=== PATIENT | male | born 1935 | race African-American/Black ===

== ENCOUNTER 2019-03-20 12:50 | Inpatient (IN) | payer MEDICAID ==
[2019-03-20] VITALS (23 sets, daily range): BP systolic 101–184; BP diastolic 59–131
[~2019-03-20] VITALS: Ht 175.3 cm; Wt 55.8 kg
[2019-03-20 13:54] LABS: CHLORIDE 104 mEq/L (98-107)
[2019-03-20 13:55] LABS: HEMATOCRIT. 24.3 % (42.0-52.0); HEMOGLOBIN. 7.6 g/dL (14.0-18.0); MEAN CORPUSCULAR HEMOGLOBIN 20.1 pg (28.0-32.0); MEAN CORPUSCULAR VOLUME 64.6 fL (80.0-94.0); MEAN PLATELET VOLUME 7.9 fl (7.4-10.4); PLATELET 329 x1000/uL (130-400); RED BLOOD CELL COUNT 3.77 mill/uL (4.7-6.1); RED CELL DISTRIBUTION WIDTH 19.7 % (11.6-14.6)
[2019-03-20 14:32] LABS: PLATELET ESTIMATE NORMAL
[2019-03-20] MEDS ORDERED: IPRATROPIUM/ALBUTEROL 0.5-3(2.5)MG/3ML NEB NEB PRN (18:30)
[2019-03-20] MEDS ORDERED: KETOROLAC 15MG/ML VIAL IV PRN (18:30)
[2019-03-20] MEDS ORDERED: CLONIDINE 0.1MG TABLET PO PRN (18:30)
[2019-03-20] MEDS ORDERED: LORAZEPAM 0.5MG TABLET PO PRN (18:30)
[2019-03-20] MEDS ORDERED: DOCUSATE SODIUM 100MG CAPSULE PO PRN (18:30)
[2019-03-20] MEDS ORDERED: GUAIFENESIN 200MG/10ML SUGAR FREE UDC PO PRN (18:30)
[2019-03-20] MEDS ORDERED: NITROGLYCERIN 0.4MG TABLET SL SL PRN (18:30)
[2019-03-20] MEDS ORDERED: ONDANSETRON HCL 4MG/2ML INJ IV PRN (18:30)
[2019-03-20] MEDS ORDERED: ZOLPIDEM TARTRATE 5MG TABLET PO PRN (18:30)
[2019-03-20 18:48] LABS: CLARITY URINE CLEAR (CLEAR); COLOR URINE YELLOW (YELLOW); KETONES URINE NEGATIVE (NEGATIVE); LEUKOCYTE ESTERASE URINE NEGATIVE (NEGATIVE); NITRITE URINE NEGATIVE (NEGATIVE); OCCULT BLOOD URINE NEGATIVE (NEGATIVE); PROTEIN URINE NEGATIVE (NEGATIVE); SPECIFIC GRAVITY URINE 1.002 (1.005-1.030); UROBILINOGEN URINE 0.2 E.U./dL (0.2-1.0)
[2019-03-20 19:27] LABS: ETHANOL BLOOD < 10 mg/dL
[2019-03-20 19:29] LABS: LDL CHOLESTEROL 60 mg/dL (5-100)
[2019-03-20 19:31] LABS: HDL CHOLESTEROL 114 mg/dL (40-59); TOTAL IRON BINDING CAPACITY 444 ug/dL (250-450)
[2019-03-20 19:32] LABS: T4 FREE 0.89 ng/dL (0.76-1.46)
[2019-03-20 19:44] LABS: FOLIC ACID (FOLATE) SERUM >20 ng/mL ng/mL (>5.38)
[2019-03-20 19:55] LABS: VITAMIN B12 SERUM 789 pg/mL (211-911)
[2019-03-20] MEDS ORDERED: LORAZEPAM 2MG/ML CPJ IV NR (20:45)
[2019-03-20] MEDS ORDERED: PROPOFOL 10MG/ML 100ML 100 ML IV SCH (20:45)
[2019-03-20 20:50] LABS: PROTHROMBIN TIME 10.4 sec (9.6-11.0)
[2019-03-20 20:57] LABS: CREATINE KINASE 395 IU/L (39-308)
[2019-03-20 20:58] LABS: CREATINE KINASE MB FRACTION 3.3 ng/mL (0.5-3.6)
[2019-03-20] MEDS: METOPROLOL TARTRATE 25MG TABLET PO SCH (21:00)
[2019-03-20 21:52] LABS: BG CARBOXYHEMOGLOBIN 0.3 % (0.5-1.5); BG DEOXYHEMOGLOBIN 0.2 % (0.0-5.0); BG FRACTION INSPIRED OXYGEN 100; BG METHEMOGLOBIN 0.3 % (0.0-1.5); BG OXYGEN SATURATION 99.8 % (92.0-98.5); BG OXYHEMOGLOBIN 99.2 % (94.0-97.0); BG PCO2 31.9 mmHg (35.0-45.0); BG PH 7.416 (7.350-7.450); BG PO2 429.3 mmHg (75.0-100.0); BG SAMPLE SITE RIGHT RADIAL; BG TIDAL VOLUME(mL) 500 mL; BG TOTAL HEMOGLOBIN 7.8 g/dL (12.0-18.0); BG VENT MODE VENT - A/C; BG VENT RATE 16 set
[2019-03-20] MEDS ORDERED: SUCCINYLCHOLINE CHLORIDE 200MG/10ML IV ONE (22:30)
[2019-03-20] MEDS ORDERED: ETOMIDATE 2MG/ML 10ML VIAL IV ONE (22:30)
[2019-03-20] MEDS: LABETALOL 5MG/ML SYR 20 MG/4 ML SYRINGE IV NR ×2 (22:40→23:00)
[2019-03-20 22:49] LABS: HEMATOCRIT 25.3 % (42.0-52.0); MEAN CORPUSCULAR HEMOGLOBIN 20.1 pg (28.0-32.0); MEAN CORPUSCULAR VOLUME 63.2 fL (80.0-94.0); PLATELET 314 x1000/uL (130-400); RED BLOOD CELL COUNT 4.01 mill/uL (4.7-6.1); RED CELL DISTRIBUTION WIDTH 20.1 % (11.6-14.6)
[2019-03-20] MEDS ORDERED: ALTEPLASE 100MG/VIAL IV ONE (22:50)
[2019-03-20] MEDS ORDERED: *NO ASPIRIN X 24 HOURS XX SCH (22:50)
[2019-03-20] MEDS ORDERED: CONTAINER EMPTY IV ONE (23:00)
[2019-03-20] MEDS ORDERED: LABETALOL 5MG/ML SYR 20 MG/4 ML SYRINGE IV NR (23:00)
[2019-03-20] MEDS ORDERED: ALTEPLASE IV ONE (23:00)
[2019-03-20] MEDS ORDERED: IOHEXOL-350 100 ML BOTTLE ONE (23:19)
[2019-03-21] VITALS (115 sets, daily range): BP systolic 133–194; BP diastolic 71–125
[2019-03-21] MEDS ORDERED: CLONIDINE 0.1MG TABLET PO PRN (02:45)
[2019-03-21] MEDS: DEXT 5%/0.9% NACL KCL 20MEQ/L 1,000 ML IV SCH ×2 (03:54→15:10)
[2019-03-21] MEDS: BLOOD SUGAR DIAGNOSTIC STRIP TEST SCH ×4 (05:53→21:13)
[2019-03-21] MEDS: PANTOPRAZOLE SODIUM 40 MG/VIAL IV SCH ×2 (05:55→17:37)
[2019-03-21 06:27] LABS: CREATINE KINASE MB FRACTION 8.9 ng/mL (0.5-3.6)
[2019-03-21] MEDS: FERROUS SULFATE 300MG/5ML UDC PO SCH ×3 (06:33→17:00)
[2019-03-21 08:00] LABS: BG BASE EXCESS 1.7 mmol/L (-2.0-2.0); BG CARBOXYHEMOGLOBIN 0.2 % (0.5-1.5); BG FRACTION INSPIRED OXYGEN 50; BG METHEMOGLOBIN 0.6 % (0.0-1.5); BG OXYHEMOGLOBIN 98.2 % (94.0-97.0); BG PCO2 39.6 mmHg (35.0-45.0); BG PH 7.435 (7.350-7.450); BG PO2 219.9 mmHg (75.0-100.0); BG SAMPLE SITE RIGHT BRACHIAL; BG TIDAL VOLUME(mL) 500 mL; BG TOTAL HEMOGLOBIN 8.4 g/dL (12.0-18.0); BG VENT MODE VENT - A/C; BG VENT RATE 14 set
[2019-03-21 08:18] LABS: HEMATOCRIT. 26.5 % (42.0-52.0); HEMOGLOBIN. 8.2 g/dL (14.0-18.0); MEAN CORPUSCULAR HEMOGLOBIN 19.9 pg (28.0-32.0); MEAN CORPUSCULAR VOLUME 64.2 fL (80.0-94.0); MEAN PLATELET VOLUME 8.6 fl (7.4-10.4); PLATELET 321 x1000/uL (130-400); RED BLOOD CELL COUNT 4.13 mill/uL (4.7-6.1); RED CELL DISTRIBUTION WIDTH 20.2 % (11.6-14.6)
[2019-03-21 08:21] LABS: CHLORIDE 106 mEq/L (98-107)
[2019-03-21] MEDS: METOPROLOL TARTRATE 25MG TABLET PO SCH ×2 (09:00→21:00)
[2019-03-21 09:58] LABS: *AMPHETAMINES SCREEN URINE NEGATIVE (NEGATIVE); *BARBITURATES SCREEN URINE NEGATIVE (NEGATIVE); *BENZODIAZEPINES SCREEN URINE NEGATIVE (NEGATIVE); *COCAINE SCREEN URINE NEGATIVE (NEGATIVE); CANNABINOID URINE SCREEN NEGATIVE (NEGATIVE); METHADONE URINE SCREEN NEGATIVE (NEGATIVE); OPIATES URINE SCREEN NEGATIVE (NEGATIVE); PHENCYCLIDINE URINE SCREEN NEGATIVE (NEGATIVE)
[2019-03-21] MEDS ORDERED: DEXTROSE 50% WATER 50ML SYRINGE IV ONE (11:09)
[2019-03-21] MEDS ORDERED: IOHEXOL-300 100 ML BOTTLE ONE (12:08)
[2019-03-21 13:12] LABS: PLATELET ESTIMATE NORMAL
[2019-03-21] MEDS: IPRATROPIUM/ALBUTEROL 0.5-3(2.5)MG/3ML NEB HHN SCH ×2 (15:41→20:08)
[2019-03-21] MEDS: BUDESONIDE 0.5MG/2ML NEB HHN SCH ×2 (15:41→20:08)
[2019-03-22] VITALS (96 sets, daily range): BP systolic 99–164; BP diastolic 50–88
[2019-03-22] MEDS: DEXT 5%/0.9% NACL KCL 20MEQ/L 1,000 ML IV SCH ×3 (01:18→21:48)
[2019-03-22] MEDS: IPRATROPIUM/ALBUTEROL 0.5-3(2.5)MG/3ML NEB HHN SCH ×4 (02:06→20:25)
[2019-03-22] MEDS ORDERED: DEXAMETHASONE 10 MG/ML VIAL IV SCH (05:00)
[2019-03-22] MEDS: NICARDIPINE 100 MG in SODIUM CHLORIDE 0.9% 60 ML IV PRN ×2 (05:05→11:56)
[2019-03-22] MEDS: PANTOPRAZOLE SODIUM 40 MG/VIAL IV SCH ×2 (05:17→17:25)
[2019-03-22 05:20] LABS: HEMATOCRIT. 26.8 % (42.0-52.0); HEMOGLOBIN. 8.3 g/dL (14.0-18.0); MEAN CORPUSCULAR HEMOGLOBIN 19.9 pg (28.0-32.0); MEAN PLATELET VOLUME 8.5 fl (7.4-10.4); PLATELET 273 x1000/uL (130-400); RED BLOOD CELL COUNT 4.19 mill/uL (4.7-6.1); RED CELL DISTRIBUTION WIDTH 20.2 % (11.6-14.6)
[2019-03-22 05:26] LABS: CHLORIDE 108 mEq/L (98-107)
[2019-03-22] MEDS ORDERED: FUROSEMIDE 20MG/2ML VIAL IVP SCH (05:30)
[2019-03-22 05:34] LABS: HDL CHOLESTEROL 95 mg/dL (40-59)
[2019-03-22 05:35] LABS: LDL CHOLESTEROL 53 mg/dL (5-100)
[2019-03-22] MEDS: BLOOD SUGAR DIAGNOSTIC STRIP TEST SCH ×4 (05:45→23:35)
[2019-03-22] MEDS: FERROUS SULFATE 300MG/5ML UDC PO SCH ×3 (06:16→17:00)
[2019-03-22 08:53] LABS: BG BASE EXCESS 1.8 mmol/L (-2.0-2.0); BG CARBOXYHEMOGLOBIN 0.3 % (0.5-1.5); BG DEOXYHEMOGLOBIN 2.6 % (0.0-5.0); BG FRACTION INSPIRED OXYGEN 35; BG HCO3 ACT 25.6 mmol/L (22.0-26.0); BG METHEMOGLOBIN 0.4 % (0.0-1.5); BG OXYGEN SATURATION 97.4 % (92.0-98.5); BG OXYHEMOGLOBIN 96.7 % (94.0-97.0); BG PCO2 36.1 mmHg (35.0-45.0); BG PH 7.468 (7.350-7.450); BG PO2 104.4 mmHg (75.0-100.0); BG SAMPLE SITE RIGHT RADIAL; BG TIDAL VOLUME(mL) 450 mL; BG VENT MODE VENT - A/C; BG VENT RATE 12 set
[2019-03-22] MEDS: LEVETIRACETAM 500 MG in SODIUM CHLORIDE 0.9% 100 ML IV SCH ×2 (08:53→21:48)
[2019-03-22] MEDS: BUDESONIDE 0.5MG/2ML NEB HHN SCH ×2 (08:57→20:25)
[2019-03-22] MEDS: METOPROLOL TARTRATE 25MG TABLET PO SCH ×2 (08:59→21:48)
[2019-03-22 09:20] LABS: NUCLEATED RED BLOOD CELLS 1 /100 WBC; PLATELET ESTIMATE NORMAL
[2019-03-22] MEDS: DEXAMETHASONE 4MG/ML 1ML VIAL IV SCH ×3 (11:48→23:36)
[2019-03-22] MEDS ORDERED: DEXT 5%/LACTATED RINGERS 1,000 ML IV SCH (22:30)
[2019-03-23] VITALS (95 sets, daily range): BP systolic 112–157; BP diastolic 53–92
[2019-03-23] MEDS: IPRATROPIUM/ALBUTEROL 0.5-3(2.5)MG/3ML NEB HHN SCH ×4 (01:43→20:27)
[2019-03-23] MEDS: BLOOD SUGAR DIAGNOSTIC STRIP TEST SCH ×3 (06:29→17:57)
[2019-03-23] MEDS: PANTOPRAZOLE SODIUM 40 MG/VIAL IV SCH ×2 (06:29→17:56)
[2019-03-23] MEDS: FERROUS SULFATE 300MG/5ML UDC PO SCH ×3 (06:30→17:56)
[2019-03-23] MEDS: DEXAMETHASONE 4MG/ML 1ML VIAL IV SCH ×3 (06:30→17:57)
[2019-03-23 07:54] LABS: BG BASE EXCESS -1.5 mmol/L (-2.0-2.0); BG CARBOXYHEMOGLOBIN 0.4 % (0.5-1.5); BG DEOXYHEMOGLOBIN 1.2 % (0.0-5.0); BG FRACTION INSPIRED OXYGEN 35; BG HCO3 ACT 21.8 mmol/L (22.0-26.0); BG METHEMOGLOBIN 0.1 % (0.0-1.5); BG OXYGEN SATURATION 98.8 % (92.0-98.5); BG OXYHEMOGLOBIN 98.3 % (94.0-97.0); BG PCO2 30.1 mmHg (35.0-45.0); BG PH 7.477 (7.350-7.450); BG PO2 143.6 mmHg (75.0-100.0); BG SAMPLE SITE RIGHT RADIAL; BG TIDAL VOLUME(mL) 500 mL; BG VENT MODE VENT - A/C; BG VENT RATE 12 set
[2019-03-23] MEDS: METOPROLOL TARTRATE 25MG TABLET PO SCH ×2 (08:12→20:57)
[2019-03-23] MEDS: LEVETIRACETAM 500 MG in SODIUM CHLORIDE 0.9% 100 ML IV SCH ×2 (08:12→20:58)
[2019-03-23 08:44] LABS: BG CARBOXYHEMOGLOBIN 0.3 % (0.5-1.5); BG DEOXYHEMOGLOBIN 1.9 % (0.0-5.0); BG FRACTION INSPIRED OXYGEN 35; BG HCO3 ACT 24.5 mmol/L (22.0-26.0); BG METHEMOGLOBIN 0.5 % (0.0-1.5); BG OXYGEN SATURATION 98.1 % (92.0-98.5); BG OXYHEMOGLOBIN 97.3 % (94.0-97.0); BG PCO2 33.6 mmHg (35.0-45.0); BG PO2 132.7 mmHg (75.0-100.0); BG PRESSURE SUPPORT 12; BG SAMPLE SITE RIGHT RADIAL; BG TIDAL VOLUME(mL) 450 mL; BG TOTAL HEMOGLOBIN 7.4 g/dL (12.0-18.0); BG VENT MODE VENT - SIMV; BG VENT RATE 8 set
[2019-03-23] MEDS: MORPHINE SULFATE 2 MG/ML CPJ (NOT FOR IM USE) IV PRN (21:30)
[2019-03-23] MEDS: BUDESONIDE 0.5MG/2ML NEB HHN SCH (23:56)
[2019-03-24] VITALS (92 sets, daily range): BP systolic 117–151; BP diastolic 54–76
[2019-03-24] MEDS: BLOOD SUGAR DIAGNOSTIC STRIP TEST SCH ×4 (00:03→17:18)
[2019-03-24] MEDS: DEXAMETHASONE 4MG/ML 1ML VIAL IV SCH ×4 (00:04→17:18)
[2019-03-24] MEDS: IPRATROPIUM/ALBUTEROL 0.5-3(2.5)MG/3ML NEB HHN SCH ×4 (03:42→20:18)
[2019-03-24] MEDS: FERROUS SULFATE 300MG/5ML UDC PO SCH ×3 (06:17→17:18)
[2019-03-24] MEDS: PANTOPRAZOLE SODIUM 40 MG/VIAL IV SCH ×2 (06:18→17:18)
[2019-03-24] MEDS: BUDESONIDE 0.5MG/2ML NEB HHN SCH ×2 (07:56→20:18)
[2019-03-24] MEDS: METOPROLOL TARTRATE 25MG TABLET PO SCH ×2 (08:20→21:33)
[2019-03-24] MEDS: LEVETIRACETAM 500 MG in SODIUM CHLORIDE 0.9% 100 ML IV SCH ×2 (08:20→21:32)
[2019-03-25] VITALS (70 sets, daily range): BP systolic 117–167; BP diastolic 49–119
[2019-03-25] MEDS: BLOOD SUGAR DIAGNOSTIC STRIP TEST SCH ×5 (00:19→23:41)
[2019-03-25] MEDS: DEXAMETHASONE 4MG/ML 1ML VIAL IV SCH ×5 (00:25→23:36)
[2019-03-25] MEDS: IPRATROPIUM/ALBUTEROL 0.5-3(2.5)MG/3ML NEB HHN SCH ×4 (02:20→20:13)
[2019-03-25] MEDS: NICARDIPINE 100 MG in SODIUM CHLORIDE 0.9% 60 ML IV PRN (02:58)
[2019-03-25] MEDS: MORPHINE SULFATE 2 MG/ML CPJ (NOT FOR IM USE) IV PRN (05:22)
[2019-03-25] MEDS: PANTOPRAZOLE SODIUM 40 MG/VIAL IV SCH ×2 (06:08→17:16)
[2019-03-25] MEDS: FERROUS SULFATE 300MG/5ML UDC PO SCH ×3 (07:01→17:15)
[2019-03-25 07:31] LABS: BG BASE EXCESS 3.1 mmol/L (-2.0-2.0); BG CARBOXYHEMOGLOBIN 0.3 % (0.5-1.5); BG DEOXYHEMOGLOBIN 2.5 % (0.0-5.0); BG HCO3 ACT 26.9 mmol/L (22.0-26.0); BG METHEMOGLOBIN 0.5 % (0.0-1.5); BG OXYGEN SATURATION 97.5 % (92.0-98.5); BG OXYHEMOGLOBIN 96.7 % (94.0-97.0); BG PCO2 37.7 mmHg (35.0-45.0); BG PH 7.472 (7.350-7.450); BG PO2 111.2 mmHg (75.0-100.0); BG SAMPLE SITE RIGHT RADIAL; BG TIDAL VOLUME(mL) 450 mL; BG TOTAL HEMOGLOBIN 7.5 g/dL (12.0-18.0); BG VENT MODE VENT - SIMV; BG VENT RATE 8 set
[2019-03-25] MEDS: METOPROLOL TARTRATE 25MG TABLET PO SCH ×2 (08:28→20:27)
[2019-03-25] MEDS: LEVETIRACETAM 500 MG in SODIUM CHLORIDE 0.9% 100 ML IV SCH ×2 (08:28→20:26)
[2019-03-25] MEDS: AMLODIPINE 10MG TABLET PO SCH (10:10)
[2019-03-25] MEDS: LISINOPRIL 20MG TABLET PO SCH ×2 (10:10→20:26)
[2019-03-26] VITALS (57 sets, daily range): BP systolic 99–157; BP diastolic 55–91
[2019-03-26] MEDS: IPRATROPIUM/ALBUTEROL 0.5-3(2.5)MG/3ML NEB HHN SCH ×4 (02:00→20:26)
[2019-03-26] MEDS: BLOOD SUGAR DIAGNOSTIC STRIP TEST SCH ×4 (06:10→23:09)
[2019-03-26] MEDS: DEXAMETHASONE 4MG/ML 1ML VIAL IV SCH ×4 (06:11→23:16)
[2019-03-26] MEDS: PANTOPRAZOLE SODIUM 40 MG/VIAL IV SCH ×2 (06:11→18:01)
[2019-03-26] MEDS: FERROUS SULFATE 300MG/5ML UDC PO SCH ×3 (08:13→18:01)
[2019-03-26] MEDS: LEVETIRACETAM 500 MG in SODIUM CHLORIDE 0.9% 100 ML IV SCH ×2 (09:03→20:49)
[2019-03-26] MEDS: AMLODIPINE 10MG TABLET PO SCH (09:04)
[2019-03-26] MEDS: LISINOPRIL 20MG TABLET PO SCH ×2 (09:04→20:50)
[2019-03-26] MEDS: METOPROLOL TARTRATE 25MG TABLET PO SCH ×2 (09:06→20:50)
[2019-03-26] MEDS ORDERED: DEXTROSE 50% WATER 50ML SYRINGE IV PRN (12:30)
[2019-03-26] MEDS: INSULIN LISPRO 100 UNITS/ML SUBCUT SCH ×3 (12:34→23:20)
[2019-03-27] VITALS (31 sets, daily range): BP systolic 103–154; BP diastolic 58–82
[2019-03-27] MEDS: IPRATROPIUM/ALBUTEROL 0.5-3(2.5)MG/3ML NEB HHN SCH ×4 (02:13→20:25)
[2019-03-27] MEDS: BLOOD SUGAR DIAGNOSTIC STRIP TEST SCH ×4 (05:25→23:53)
[2019-03-27] MEDS: DEXAMETHASONE 4MG/ML 1ML VIAL IV SCH ×4 (05:33→23:59)
[2019-03-27] MEDS: PANTOPRAZOLE SODIUM 40 MG/VIAL IV SCH ×2 (05:33→18:23)
[2019-03-27] MEDS: INSULIN LISPRO 100 UNITS/ML SUBCUT SCH ×4 (05:38→23:59)
[2019-03-27 05:39] LABS: HEMATOCRIT. 27.2 % (42.0-52.0); HEMOGLOBIN. 8.1 g/dL (14.0-18.0); MEAN CORPUSCULAR HEMOGLOBIN 19.1 pg (28.0-32.0); MEAN CORPUSCULAR VOLUME 64.1 fL (80.0-94.0); MEAN PLATELET VOLUME 8.8 fl (7.4-10.4); PLATELET 231 x1000/uL (130-400); RED BLOOD CELL COUNT 4.25 mill/uL (4.7-6.1); RED CELL DISTRIBUTION WIDTH 20.9 % (11.6-14.6)
[2019-03-27 05:47] LABS: CHLORIDE 112 mEq/L (98-107)
[2019-03-27 07:09] LABS: PLATELET ESTIMATE NORMAL
[2019-03-27 08:37] LABS: BG BASE EXCESS 5.7 mmol/L (-2.0-2.0); BG CARBOXYHEMOGLOBIN 0.3 % (0.5-1.5); BG DEOXYHEMOGLOBIN 2.4 % (0.0-5.0); BG FRACTION INSPIRED OXYGEN 35; BG HCO3 ACT 29.6 mmol/L (22.0-26.0); BG METHEMOGLOBIN 1.4 % (0.0-1.5); BG OXYGEN SATURATION 97.6 % (92.0-98.5); BG OXYHEMOGLOBIN 95.9 % (94.0-97.0); BG PCO2 40.1 mmHg (35.0-45.0); BG PH 7.486 (7.350-7.450); BG PRESSURE SUPPORT 12; BG SAMPLE SITE RIGHT BRACHIAL; BG TIDAL VOLUME(mL) 450 mL; BG TOTAL HEMOGLOBIN 8.7 g/dL (12.0-18.0); BG VENT MODE VENT - SIMV; BG VENT RATE 8 set
[2019-03-27] MEDS: LISINOPRIL 20MG TABLET PO SCH ×2 (09:39→21:27)
[2019-03-27] MEDS: METOPROLOL TARTRATE 25MG TABLET PO SCH ×2 (09:39→21:28)
[2019-03-27] MEDS: AMLODIPINE 10MG TABLET PO SCH (09:40)
[2019-03-27] MEDS: LEVETIRACETAM 500 MG in SODIUM CHLORIDE 0.9% 100 ML IV SCH ×2 (09:40→21:27)
[2019-03-27] MEDS ORDERED: MEROPENEM 500 MG in SODIUM CHLORIDE 0.9% 50 ML IV SCH (09:45)
[2019-03-27 10:59] LABS: BG BASE EXCESS 4.7 mmol/L (-2.0-2.0); BG CARBOXYHEMOGLOBIN 0.3 % (0.5-1.5); BG DEOXYHEMOGLOBIN 2.2 % (0.0-5.0); BG FRACTION INSPIRED OXYGEN 35; BG HCO3 ACT 28.8 mmol/L (22.0-26.0); BG METHEMOGLOBIN 0.2 % (0.0-1.5); BG OXYGEN SATURATION 97.8 % (92.0-98.5); BG OXYHEMOGLOBIN 97.3 % (94.0-97.0); BG PCO2 40.9 mmHg (35.0-45.0); BG PH 7.466 (7.350-7.450); BG PO2 113.9 mmHg (75.0-100.0); BG PRESSURE SUPPORT 8; BG SAMPLE SITE RIGHT BRACHIAL; BG TOTAL HEMOGLOBIN 8.6 g/dL (12.0-18.0); BG VENT MODE VENT - CPAP
[2019-03-27] MEDS ORDERED: VANCOMYCIN 1 G PREMIX 200 ML IV NR (12:00)
[2019-03-27] MEDS: FERROUS SULFATE 300MG/5ML UDC PO SCH ×3 (12:00→17:00)
[2019-03-27] MEDS: MEROPENEM 1000MG in NORMAL SALINE 100ML IV SCH ×2 (12:17→22:27)
[2019-03-27] MEDS: NYSTATIN 100,000 UNITS/ML 5ML UDC SSP SCH ×3 (12:17→23:59)
[2019-03-27] MEDS: VANCOMYCIN 750 MG PREMIX 150 ML IV SCH (23:52)
[2019-03-28] VITALS (50 sets, daily range): BP systolic 87–169; BP diastolic 27–88
[2019-03-28] MEDS: IPRATROPIUM/ALBUTEROL 0.5-3(2.5)MG/3ML NEB HHN SCH ×4 (00:35→20:16)
[2019-03-28] MEDS: BLOOD SUGAR DIAGNOSTIC STRIP TEST SCH ×3 (06:01→17:32)
[2019-03-28] MEDS: DEXAMETHASONE 4MG/ML 1ML VIAL IV SCH ×4 (06:05→23:58)
[2019-03-28] MEDS: PANTOPRAZOLE SODIUM 40 MG/VIAL IV SCH ×2 (06:05→17:43)
[2019-03-28] MEDS: FERROUS SULFATE 300MG/5ML UDC PO SCH ×3 (06:05→17:00)
[2019-03-28] MEDS: NYSTATIN 100,000 UNITS/ML 5ML UDC SSP SCH ×4 (06:05→23:58)
[2019-03-28] MEDS: INSULIN LISPRO 100 UNITS/ML SUBCUT SCH ×3 (06:15→17:45)
[2019-03-28] MEDS: METOPROLOL TARTRATE 25MG TABLET PO SCH ×2 (08:31→20:32)
[2019-03-28] MEDS: LEVETIRACETAM 500 MG in SODIUM CHLORIDE 0.9% 100 ML IV SCH ×2 (08:31→21:28)
[2019-03-28] MEDS: LISINOPRIL 20MG TABLET PO SCH ×2 (08:32→20:32)
[2019-03-28] MEDS: AMLODIPINE 10MG TABLET PO SCH (08:32)
[2019-03-28] MEDS ORDERED: ETOMIDATE 2MG/ML 10ML VIAL IV ONE (10:00)
[2019-03-28] MEDS ORDERED: VECURONIUM BROMIDE 10 MG/VIAL IV ONE (10:00)
[2019-03-28] MEDS: MEROPENEM 1000MG in NORMAL SALINE 100ML IV SCH ×2 (10:45→22:24)
[2019-03-28] MEDS: VANCOMYCIN 750 MG PREMIX 150 ML IV SCH ×2 (11:02→23:10)
[2019-03-28] MEDS ORDERED: SODIUM CHLORIDE 0.9% 500 ML IV NR (11:24)
[2019-03-28 12:04] LABS: BG BASE EXCESS 6.8 mmol/L (-2.0-2.0); BG CARBOXYHEMOGLOBIN 0.1 % (0.5-1.5); BG DEOXYHEMOGLOBIN 0.4 % (0.0-5.0); BG FRACTION INSPIRED OXYGEN 100; BG HCO3 ACT 30.6 mmol/L (22.0-26.0); BG METHEMOGLOBIN 0.4 % (0.0-1.5); BG OXYGEN SATURATION 99.6 % (92.0-98.5); BG OXYHEMOGLOBIN 99.1 % (94.0-97.0); BG PCO2 40.1 mmHg (35.0-45.0); BG PO2 471.8 mmHg (75.0-100.0); BG SAMPLE SITE RIGHT BRACHIAL; BG TIDAL VOLUME(mL) 500 mL; BG TOTAL HEMOGLOBIN 8.5 g/dL (12.0-18.0); BG VENT MODE VENT - A/C; BG VENT RATE 14 set
[2019-03-28 13:35] LABS: HEMATOCRIT. 26.5 % (42.0-52.0); HEMOGLOBIN. 7.9 g/dL (14.0-18.0); MEAN CORPUSCULAR VOLUME 63.4 fL (80.0-94.0); MEAN PLATELET VOLUME 8.8 fl (7.4-10.4); PLATELET 216 x1000/uL (130-400); RED BLOOD CELL COUNT 4.18 mill/uL (4.7-6.1); RED CELL DISTRIBUTION WIDTH 20.8 % (11.6-14.6)
[2019-03-28 13:37] LABS: CHLORIDE 113 mEq/L (98-107)
[2019-03-28 14:38] LABS: NUCLEATED RED BLOOD CELLS 1 /100 WBC; PLATELET ESTIMATE NORMAL
[2019-03-28] MEDS: DOCUSATE SODIUM SUGAR FREE 100MG/10ML UDC NG SCH (20:32)
[2019-03-29] VITALS (48 sets, daily range): BP systolic 105–146; BP diastolic 54–84
[2019-03-29] MEDS: IPRATROPIUM/ALBUTEROL 0.5-3(2.5)MG/3ML NEB HHN SCH ×4 (01:42→20:10)
[2019-03-29] MEDS: DEXAMETHASONE 4MG/ML 1ML VIAL IV SCH ×4 (06:03→23:43)
[2019-03-29] MEDS: FERROUS SULFATE 300MG/5ML UDC PO SCH ×3 (06:03→16:34)
[2019-03-29] MEDS: PANTOPRAZOLE SODIUM 40 MG/VIAL IV SCH ×2 (06:03→17:44)
[2019-03-29] MEDS: BLOOD SUGAR DIAGNOSTIC STRIP TEST SCH ×5 (06:04→23:43)
[2019-03-29] MEDS: NYSTATIN 100,000 UNITS/ML 5ML UDC SSP SCH ×4 (06:05→23:43)
[2019-03-29] MEDS: INSULIN LISPRO 100 UNITS/ML SUBCUT SCH ×5 (06:05→23:44)
[2019-03-29 08:32] LABS: BG BASE EXCESS 0.3 mmol/L (-2.0-2.0); BG CARBOXYHEMOGLOBIN 0.3 % (0.5-1.5); BG DEOXYHEMOGLOBIN 2.4 % (0.0-5.0); BG FRACTION INSPIRED OXYGEN 35; BG HCO3 ACT 23.6 mmol/L (22.0-26.0); BG METHEMOGLOBIN 0.3 % (0.0-1.5); BG OXYGEN SATURATION 97.6 % (92.0-98.5); BG PCO2 33.3 mmHg (35.0-45.0); BG PH 7.469 (7.350-7.450); BG PO2 115.6 mmHg (75.0-100.0); BG PRESSURE SUPPORT 12; BG SAMPLE SITE RIGHT RADIAL; BG TIDAL VOLUME(mL) 450 mL; BG TOTAL HEMOGLOBIN 9.4 g/dL (12.0-18.0); BG VENT MODE VENT - SIMV; BG VENT RATE 8 set
[2019-03-29] MEDS: DOCUSATE SODIUM SUGAR FREE 100MG/10ML UDC NG SCH ×2 (09:19→16:35)
[2019-03-29] MEDS: LEVETIRACETAM 500 MG in SODIUM CHLORIDE 0.9% 100 ML IV SCH ×2 (09:19→21:38)
[2019-03-29] MEDS: LISINOPRIL 20MG TABLET PO SCH ×2 (09:19→20:46)
[2019-03-29] MEDS: AMLODIPINE 10MG TABLET PO SCH (09:19)
[2019-03-29] MEDS: METOPROLOL TARTRATE 25MG TABLET PO SCH ×2 (09:20→20:46)
[2019-03-29] MEDS: MEROPENEM 1000MG in NORMAL SALINE 100ML IV SCH ×2 (10:57→23:43)
[2019-03-29] MEDS: VANCOMYCIN 750 MG PREMIX 150 ML IV SCH ×2 (12:17→19:54)
[2019-03-29] MEDS ORDERED: LACTULOSE 20G/30ML UDC PO NR (14:45)
[2019-03-29] MEDS ORDERED: DOCUSATE SODIUM 100MG CAPSULE NG SCH (17:00)
[2019-03-30] VITALS (49 sets, daily range): BP systolic 79–144; BP diastolic 51–99
[2019-03-30] MEDS: IPRATROPIUM/ALBUTEROL 0.5-3(2.5)MG/3ML NEB HHN SCH ×4 (01:51→20:44)
[2019-03-30] MEDS: VANCOMYCIN 750 MG PREMIX 150 ML IV SCH ×3 (03:17→22:38)
[2019-03-30 05:36] LABS: CHLORIDE 111 mEq/L (98-107); HEMATOCRIT. 33.4 % (42.0-52.0); HEMOGLOBIN. 10.3 g/dL (14.0-18.0); MEAN CORPUSCULAR HEMOGLOBIN 20.4 pg (28.0-32.0); MEAN CORPUSCULAR VOLUME 66.6 fL (80.0-94.0); MEAN PLATELET VOLUME 9.2 fl (7.4-10.4); PLATELET 226 x1000/uL (130-400); RED BLOOD CELL COUNT 5.02 mill/uL (4.7-6.1); RED CELL DISTRIBUTION WIDTH 24.3 % (11.6-14.6)
[2019-03-30] MEDS: DEXAMETHASONE 4MG/ML 1ML VIAL IV SCH ×4 (05:44→23:48)
[2019-03-30] MEDS: PANTOPRAZOLE SODIUM 40 MG/VIAL IV SCH ×2 (05:44→17:38)
[2019-03-30] MEDS: NYSTATIN 100,000 UNITS/ML 5ML UDC SSP SCH ×4 (05:44→23:48)
[2019-03-30] MEDS: INSULIN LISPRO 100 UNITS/ML SUBCUT SCH ×4 (05:44→23:49)
[2019-03-30] MEDS: FERROUS SULFATE 300MG/5ML UDC PO SCH ×3 (06:14→17:38)
[2019-03-30] MEDS: BLOOD SUGAR DIAGNOSTIC STRIP TEST SCH ×4 (06:14→23:48)
[2019-03-30 06:50] LABS: PLATELET ESTIMATE NORMAL
[2019-03-30 08:38] LABS: BG BASE EXCESS 4.9 mmol/L (-2.0-2.0); BG CARBOXYHEMOGLOBIN 0.2 % (0.5-1.5); BG DEOXYHEMOGLOBIN 2.8 % (0.0-5.0); BG FRACTION INSPIRED OXYGEN 35; BG HCO3 ACT 28.8 mmol/L (22.0-26.0); BG METHEMOGLOBIN 0.3 % (0.0-1.5); BG OXYGEN SATURATION 97.2 % (92.0-98.5); BG OXYHEMOGLOBIN 96.7 % (94.0-97.0); BG PCO2 39.9 mmHg (35.0-45.0); BG PH 7.477 (7.350-7.450); BG PO2 109.1 mmHg (75.0-100.0); BG PRESSURE SUPPORT 12; BG SAMPLE SITE RIGHT RADIAL; BG TIDAL VOLUME(mL) 500 mL; BG VENT MODE VENT - SIMV; BG VENT RATE 6 set
[2019-03-30] MEDS: LISINOPRIL 20MG TABLET PO SCH ×2 (09:15→20:40)
[2019-03-30] MEDS: METOPROLOL TARTRATE 25MG TABLET PO SCH ×2 (09:15→20:39)
[2019-03-30] MEDS: AMLODIPINE 10MG TABLET PO SCH (09:16)
[2019-03-30] MEDS: LEVETIRACETAM 500 MG in SODIUM CHLORIDE 0.9% 100 ML IV SCH ×2 (09:16→20:39)
[2019-03-30] MEDS: DOCUSATE SODIUM SUGAR FREE 100MG/10ML UDC NG SCH ×2 (09:16→17:00)
[2019-03-30] MEDS: MEROPENEM 1000MG in NORMAL SALINE 100ML IV SCH ×2 (10:07→23:50)
[2019-03-30 16:29] LABS: INR 0.9; PROTHROMBIN TIME 9.7 sec (9.6-11.0)
[2019-03-31] VITALS (47 sets, daily range): BP systolic 105–149; BP diastolic 62–99
[2019-03-31] MEDS: IPRATROPIUM/ALBUTEROL 0.5-3(2.5)MG/3ML NEB HHN SCH ×4 (01:52→20:44)
[2019-03-31 05:07] LABS: HEMATOCRIT. 31.8 % (42.0-52.0); HEMOGLOBIN. 9.7 g/dL (14.0-18.0); MEAN CORPUSCULAR HEMOGLOBIN 20.5 pg (28.0-32.0); MEAN CORPUSCULAR VOLUME 66.8 fL (80.0-94.0); MEAN PLATELET VOLUME 9.4 fl (7.4-10.4); PLATELET 213 x1000/uL (130-400); RED BLOOD CELL COUNT 4.75 mill/uL (4.7-6.1); RED CELL DISTRIBUTION WIDTH 23.7 % (11.6-14.6)
[2019-03-31 05:09] LABS: CHLORIDE 112 mEq/L (98-107)
[2019-03-31 05:22] LABS: VANCOMYCIN TROUGH 18.2 ug/mL (5.0-10.0)
[2019-03-31] MEDS: DEXAMETHASONE 4MG/ML 1ML VIAL IV SCH ×4 (05:59→23:05)
[2019-03-31] MEDS: VANCOMYCIN 750 MG PREMIX 150 ML IV SCH ×3 (05:59→21:49)
[2019-03-31] MEDS: NYSTATIN 100,000 UNITS/ML 5ML UDC SSP SCH ×4 (05:59→23:05)
[2019-03-31] MEDS: BLOOD SUGAR DIAGNOSTIC STRIP TEST SCH ×4 (05:59→23:19)
[2019-03-31] MEDS: PANTOPRAZOLE SODIUM 40 MG/VIAL IV SCH ×2 (06:00→17:36)
[2019-03-31] MEDS: INSULIN LISPRO 100 UNITS/ML SUBCUT SCH ×5 (06:00→23:23)
[2019-03-31] MEDS: FERROUS SULFATE 300MG/5ML UDC PO SCH ×3 (07:00→17:36)
[2019-03-31] MEDS: LEVETIRACETAM 500 MG in SODIUM CHLORIDE 0.9% 100 ML IV SCH ×2 (08:14→20:44)
[2019-03-31] MEDS: DOCUSATE SODIUM SUGAR FREE 100MG/10ML UDC NG SCH ×2 (08:15→17:36)
[2019-03-31] MEDS: METOPROLOL TARTRATE 25MG TABLET PO SCH ×2 (08:40→20:44)
[2019-03-31] MEDS: AMLODIPINE 10MG TABLET PO SCH (08:40)
[2019-03-31] MEDS: LISINOPRIL 20MG TABLET PO SCH ×2 (08:40→20:45)
[2019-03-31 09:10] LABS: PLATELET ESTIMATE NORMAL
[2019-03-31] MEDS ORDERED: SODIUM CHLORIDE 0.9% 10ML VIAL ONE (11:26)
[2019-03-31] MEDS ORDERED: VECURONIUM BROMIDE 10 MG/VIAL IV ONE (11:26)
[2019-03-31] MEDS: MEROPENEM 1000MG in NORMAL SALINE 100ML IV SCH ×2 (12:50→23:06)
[2019-04-01] VITALS (50 sets, daily range): BP systolic 93–159; BP diastolic 54–92
[2019-04-01] MEDS: IPRATROPIUM/ALBUTEROL 0.5-3(2.5)MG/3ML NEB HHN SCH ×4 (01:47→20:33)
[2019-04-01] MEDS: DEXAMETHASONE 4MG/ML 1ML VIAL IV SCH ×3 (05:47→18:05)
[2019-04-01] MEDS: PANTOPRAZOLE SODIUM 40 MG/VIAL IV SCH ×2 (05:47→18:05)
[2019-04-01] MEDS: NYSTATIN 100,000 UNITS/ML 5ML UDC SSP SCH ×2 (05:48→11:41)
[2019-04-01] MEDS: VANCOMYCIN 750 MG PREMIX 150 ML IV SCH ×3 (05:50→21:16)
[2019-04-01] MEDS: INSULIN LISPRO 100 UNITS/ML SUBCUT SCH ×3 (06:12→18:06)
[2019-04-01] MEDS: BLOOD SUGAR DIAGNOSTIC STRIP TEST SCH ×3 (06:13→18:00)
[2019-04-01] MEDS: FERROUS SULFATE 300MG/5ML UDC PO SCH ×2 (08:38→11:41)
[2019-04-01] MEDS: LEVETIRACETAM 500 MG in SODIUM CHLORIDE 0.9% 100 ML IV SCH ×2 (08:38→21:16)
[2019-04-01] MEDS: AMLODIPINE 10MG TABLET PO SCH (08:39)
[2019-04-01] MEDS: METOPROLOL TARTRATE 25MG TABLET PO SCH ×2 (08:39→21:16)
[2019-04-01] MEDS: DOCUSATE SODIUM SUGAR FREE 100MG/10ML UDC NG SCH ×2 (08:39→18:05)
[2019-04-01] MEDS: LISINOPRIL 20MG TABLET PO SCH ×2 (08:39→21:17)
[2019-04-01] MEDS: MEROPENEM 1000MG in NORMAL SALINE 100ML IV SCH (11:41)
[2019-04-01] MEDS: IRON SUCROSE COMPLEX 100 MG/5 ML ML IV SCH (17:00)
[2019-04-02] VITALS (35 sets, daily range): BP systolic 97–152; BP diastolic 52–95
[2019-04-02] MEDS: BLOOD SUGAR DIAGNOSTIC STRIP TEST SCH ×4 (00:14→17:37)
[2019-04-02] MEDS: INSULIN LISPRO 100 UNITS/ML SUBCUT SCH ×4 (00:20→17:37)
[2019-04-02] MEDS: DEXAMETHASONE 4MG/ML 1ML VIAL IV SCH ×5 (00:20→23:59)
[2019-04-02] MEDS: IPRATROPIUM/ALBUTEROL 0.5-3(2.5)MG/3ML NEB HHN SCH ×4 (02:25→20:12)
[2019-04-02] MEDS: PANTOPRAZOLE SODIUM 40 MG/VIAL IV SCH ×2 (05:38→17:37)
[2019-04-02] MEDS: VANCOMYCIN 750 MG PREMIX 150 ML IV SCH ×3 (05:38→22:25)
[2019-04-02] MEDS: LEVETIRACETAM 500 MG in SODIUM CHLORIDE 0.9% 100 ML IV SCH ×2 (08:15→21:56)
[2019-04-02] MEDS: DOCUSATE SODIUM SUGAR FREE 100MG/10ML UDC NG SCH ×2 (08:15→17:00)
[2019-04-02] MEDS: METOPROLOL TARTRATE 25MG TABLET PO SCH ×2 (08:16→21:56)
[2019-04-02] MEDS: IRON SUCROSE COMPLEX 100 MG/5 ML ML IV SCH (08:16)
[2019-04-02] MEDS: LISINOPRIL 20MG TABLET PO SCH ×2 (08:17→21:57)
[2019-04-02] MEDS: AMLODIPINE 10MG TABLET PO SCH (08:17)
[2019-04-02 08:55] LABS: HEMATOCRIT. 31.3 % (42.0-52.0); HEMOGLOBIN. 9.7 g/dL (14.0-18.0); MEAN CORPUSCULAR HEMOGLOBIN 20.6 pg (28.0-32.0); MEAN CORPUSCULAR VOLUME 66.4 fL (80.0-94.0); RED BLOOD CELL COUNT 4.71 mill/uL (4.7-6.1); RED CELL DISTRIBUTION WIDTH 24.4 % (11.6-14.6)
[2019-04-02 09:00] LABS: PROTHROMBIN TIME 10.2 sec (9.6-11.0)
[2019-04-02 09:07] LABS: CHLORIDE 110 mEq/L (98-107)
[2019-04-02 09:14] LABS: PLATELET ESTIMATE NORMAL
[2019-04-02 09:16] LABS: MEAN PLATELET VOLUME 9.2 fl (7.4-10.4); PLATELET 156 x1000/uL (130-400)
[2019-04-02 09:32] LABS: BG CARBOXYHEMOGLOBIN 0.2 % (0.5-1.5); BG DEOXYHEMOGLOBIN 1.5 % (0.0-5.0); BG FRACTION INSPIRED OXYGEN 35; BG HCO3 ACT 20.7 mmol/L (22.0-26.0); BG METHEMOGLOBIN 0.3 % (0.0-1.5); BG OXYGEN SATURATION 98.5 % (92.0-98.5); BG PCO2 29.3 mmHg (35.0-45.0); BG PH 7.468 (7.350-7.450); BG PO2 149.1 mmHg (75.0-100.0); BG PRESSURE SUPPORT 12; BG SAMPLE SITE RIGHT RADIAL; BG TIDAL VOLUME(mL) 500 mL; BG TOTAL HEMOGLOBIN 11.7 g/dL (12.0-18.0); BG VENT MODE VENT - SIMV; BG VENT RATE 6 set
[2019-04-02] MEDS: MEROPENEM 1000MG in NORMAL SALINE 100ML IV SCH ×4 (12:23→23:46)
[2019-04-02] MEDS ORDERED: FENTANYL CITRATE/PF 50MCG/ML 2ML VIAL ONE (17:51)
[2019-04-02] MEDS ORDERED: MIDAZOLAM HCL 5 MG/5 ML VIAL ONE (17:52)
[2019-04-02] MEDS ORDERED: MIDAZOLAM HCL 5 MG/5 ML VIAL IV ONE (18:16)
[2019-04-03] VITALS (9 sets, daily range): BP systolic 88–106; BP diastolic 52–65
[2019-04-03] MEDS: BLOOD SUGAR DIAGNOSTIC STRIP TEST SCH ×5 (00:02→23:48)
[2019-04-03] MEDS: INSULIN LISPRO 100 UNITS/ML SUBCUT SCH ×5 (00:07→23:54)
[2019-04-03] MEDS: IPRATROPIUM/ALBUTEROL 0.5-3(2.5)MG/3ML NEB HHN SCH ×4 (02:01→20:44)
[2019-04-03] MEDS: DEXAMETHASONE 4MG/ML 1ML VIAL IV SCH ×4 (06:46→23:45)
[2019-04-03] MEDS: PANTOPRAZOLE SODIUM 40 MG/VIAL IV SCH ×2 (06:46→17:29)
[2019-04-03] MEDS: VANCOMYCIN 750 MG PREMIX 150 ML IV SCH ×3 (06:52→22:57)
[2019-04-03] MEDS: METOPROLOL TARTRATE 25MG TABLET PO SCH (08:28)
[2019-04-03] MEDS: LISINOPRIL 20MG TABLET PO SCH ×2 (08:29→21:00)
[2019-04-03] MEDS: AMLODIPINE 10MG TABLET PO SCH (08:29)
[2019-04-03] MEDS: LEVETIRACETAM 500 MG in SODIUM CHLORIDE 0.9% 100 ML IV SCH ×2 (08:35→21:26)
[2019-04-03] MEDS: IRON SUCROSE COMPLEX 100 MG/5 ML ML IV SCH (09:01)
[2019-04-03] MEDS: DOCUSATE SODIUM SUGAR FREE 100MG/10ML UDC NG SCH ×2 (09:01→17:00)
[2019-04-03] MEDS: MEROPENEM 1000MG in NORMAL SALINE 100ML IV SCH ×2 (11:00→23:45)
[2019-04-04] VITALS (12 sets, daily range): BP systolic 97–130; BP diastolic 56–89
[2019-04-04] MEDS: IPRATROPIUM/ALBUTEROL 0.5-3(2.5)MG/3ML NEB HHN SCH ×4 (02:22→20:34)
[2019-04-04] MEDS: DEXAMETHASONE 4MG/ML 1ML VIAL IV SCH ×3 (05:58→18:04)
[2019-04-04] MEDS: PANTOPRAZOLE SODIUM 40 MG/VIAL IV SCH ×2 (05:58→18:04)
[2019-04-04] MEDS: BLOOD SUGAR DIAGNOSTIC STRIP TEST SCH ×3 (05:58→17:46)
[2019-04-04] MEDS: INSULIN LISPRO 100 UNITS/ML SUBCUT SCH ×3 (06:00→18:05)
[2019-04-04] MEDS: AMLODIPINE 10MG TABLET PO SCH (09:00)
[2019-04-04] MEDS: LISINOPRIL 20MG TABLET PO SCH ×2 (09:00→21:27)
[2019-04-04] MEDS: IRON SUCROSE COMPLEX 100 MG/5 ML ML IV SCH (09:35)
[2019-04-04] MEDS: DOCUSATE SODIUM SUGAR FREE 100MG/10ML UDC NG SCH ×2 (09:35→17:00)
[2019-04-04] MEDS: LEVETIRACETAM 500 MG in SODIUM CHLORIDE 0.9% 100 ML IV SCH ×2 (10:10→21:27)
[2019-04-04] MEDS ORDERED: TRAMADOL 50MG TABLET PO PRN (21:51)
[2019-04-05] VITALS (13 sets, daily range): BP systolic 96–125; BP diastolic 61–75
[2019-04-05] MEDS: DEXAMETHASONE 4MG/ML 1ML VIAL IV SCH ×4 (00:25→17:57)
[2019-04-05] MEDS: INSULIN LISPRO 100 UNITS/ML SUBCUT SCH ×4 (00:26→17:44)
[2019-04-05] MEDS: BLOOD SUGAR DIAGNOSTIC STRIP TEST SCH ×5 (00:26→23:42)
[2019-04-05] MEDS: IPRATROPIUM/ALBUTEROL 0.5-3(2.5)MG/3ML NEB HHN SCH ×4 (02:29→20:21)
[2019-04-05] MEDS: PANTOPRAZOLE SODIUM 40 MG/VIAL IV SCH ×2 (05:58→17:43)
[2019-04-05] MEDS: IRON SUCROSE COMPLEX 100 MG/5 ML ML IV SCH (08:28)
[2019-04-05] MEDS: DOCUSATE SODIUM SUGAR FREE 100MG/10ML UDC NG SCH ×2 (08:28→17:43)
[2019-04-05] MEDS: AMLODIPINE 10MG TABLET PO SCH (08:28)
[2019-04-05] MEDS: LISINOPRIL 20MG TABLET PO SCH ×2 (08:28→21:00)
[2019-04-05] MEDS: LEVETIRACETAM 500 MG in SODIUM CHLORIDE 0.9% 100 ML IV SCH ×2 (08:28→22:02)
[2019-04-05 13:42] LABS: TOTAL IRON BINDING CAPACITY 245 ug/dL (250-450)
[2019-04-06] VITALS (12 sets, daily range): BP systolic 90–129; BP diastolic 58–78
[2019-04-06] MEDS: INSULIN LISPRO 100 UNITS/ML SUBCUT SCH ×6 (00:12→23:38)
[2019-04-06] MEDS: IPRATROPIUM/ALBUTEROL 0.5-3(2.5)MG/3ML NEB HHN SCH ×4 (02:19→20:51)
[2019-04-06] MEDS: DEXAMETHASONE 4MG/ML 1ML VIAL IV SCH ×2 (02:27→09:31)
[2019-04-06] MEDS: PANTOPRAZOLE SODIUM 40 MG/VIAL IV SCH ×2 (05:42→17:27)
[2019-04-06] MEDS: BLOOD SUGAR DIAGNOSTIC STRIP TEST SCH ×4 (05:42→23:32)
[2019-04-06 07:38] LABS: HEMATOCRIT. 30.4 % (42.0-52.0); HEMOGLOBIN. 9.3 g/dL (14.0-18.0); MEAN CORPUSCULAR HEMOGLOBIN 20.6 pg (28.0-32.0); MEAN CORPUSCULAR VOLUME 67.1 fL (80.0-94.0); MEAN PLATELET VOLUME 9.1 fl (7.4-10.4); PLATELET 126 x1000/uL (130-400); RED BLOOD CELL COUNT 4.53 mill/uL (4.7-6.1); RED CELL DISTRIBUTION WIDTH 25.3 % (11.6-14.6)
[2019-04-06] MEDS: DOCUSATE SODIUM SUGAR FREE 100MG/10ML UDC NG SCH ×2 (09:30→17:27)
[2019-04-06] MEDS: LEVETIRACETAM 500 MG in SODIUM CHLORIDE 0.9% 100 ML IV SCH ×2 (09:30→20:58)
[2019-04-06] MEDS: AMLODIPINE 10MG TABLET PO SCH (09:30)
[2019-04-06] MEDS: LISINOPRIL 20MG TABLET PO SCH ×2 (09:30→20:58)
[2019-04-06 13:05] LABS: PLATELET ESTIMATE SLIGHTLY DECREASED
[2019-04-06] MEDS ORDERED: DEXAMETHASONE 1MG TABLET PO SCH (21:00)
[2019-04-06] MEDS: DEXAMETHASONE 2MG TABLET PO SCH (23:54)
[2019-04-07] VITALS (12 sets, daily range): BP systolic 99–123; BP diastolic 55–78
[2019-04-07] MEDS: IPRATROPIUM/ALBUTEROL 0.5-3(2.5)MG/3ML NEB HHN SCH ×4 (00:33→20:27)
[2019-04-07] MEDS: PANTOPRAZOLE SODIUM 40 MG/VIAL IV SCH ×2 (05:23→18:34)
[2019-04-07] MEDS: BLOOD SUGAR DIAGNOSTIC STRIP TEST SCH ×4 (05:23→23:30)
[2019-04-07] MEDS: INSULIN LISPRO 100 UNITS/ML SUBCUT SCH ×4 (05:37→23:30)
[2019-04-07] MEDS: LEVETIRACETAM 500 MG in SODIUM CHLORIDE 0.9% 100 ML IV SCH ×2 (09:38→21:12)
[2019-04-07] MEDS: AMLODIPINE 10MG TABLET PO SCH (09:39)
[2019-04-07] MEDS: MAGNESIUM/ALUMINUM HYDROXIDE/SIMETHICONE 30ML UDC PO PRN (09:39)
[2019-04-07] MEDS: LISINOPRIL 20MG TABLET PO SCH ×2 (09:39→21:12)
[2019-04-07] MEDS: DEXAMETHASONE 2MG TABLET PO SCH ×2 (09:39→21:12)
[2019-04-07] MEDS: DOCUSATE SODIUM SUGAR FREE 100MG/10ML UDC NG SCH ×2 (09:39→18:35)
[2019-04-08] VITALS (15 sets, daily range): BP systolic 94–127; BP diastolic 48–76
[2019-04-08] MEDS: IPRATROPIUM/ALBUTEROL 0.5-3(2.5)MG/3ML NEB HHN SCH ×4 (01:46→20:18)
[2019-04-08] MEDS: PANTOPRAZOLE SODIUM 40 MG/VIAL IV SCH ×2 (05:06→18:41)
[2019-04-08] MEDS: BLOOD SUGAR DIAGNOSTIC STRIP TEST SCH ×3 (05:22→18:42)
[2019-04-08] MEDS: INSULIN LISPRO 100 UNITS/ML SUBCUT SCH ×3 (05:26→18:42)
[2019-04-08] MEDS: MAGNESIUM/ALUMINUM HYDROXIDE/SIMETHICONE 30ML UDC PO PRN (09:05)
[2019-04-08] MEDS: LEVETIRACETAM 500 MG in SODIUM CHLORIDE 0.9% 100 ML IV SCH ×2 (09:05→21:22)
[2019-04-08] MEDS: LISINOPRIL 20MG TABLET PO SCH ×2 (09:06→20:27)
[2019-04-08] MEDS: AMLODIPINE 10MG TABLET PO SCH (09:06)
[2019-04-08] MEDS: DEXAMETHASONE 2MG TABLET PO SCH (09:06)
[2019-04-08] MEDS: DOCUSATE SODIUM SUGAR FREE 100MG/10ML UDC NG SCH ×2 (09:06→16:37)
[2019-04-08 17:38] LABS: CHLORIDE 111 mEq/L (98-107)
[2019-04-09] VITALS (12 sets, daily range): BP systolic 104–138; BP diastolic 50–88
[2019-04-09] MEDS: IPRATROPIUM/ALBUTEROL 0.5-3(2.5)MG/3ML NEB HHN SCH ×4 (02:27→20:03)
[2019-04-09] MEDS: BLOOD SUGAR DIAGNOSTIC STRIP TEST SCH ×5 (06:09→23:20)
[2019-04-09] MEDS: PANTOPRAZOLE SODIUM 40 MG/VIAL IV SCH ×2 (06:10→17:40)
[2019-04-09] MEDS: LEVETIRACETAM 500 MG in SODIUM CHLORIDE 0.9% 100 ML IV SCH ×2 (08:50→21:13)
[2019-04-09] MEDS: DOCUSATE SODIUM SUGAR FREE 100MG/10ML UDC NG SCH ×2 (08:50→17:40)
[2019-04-09] MEDS: AMLODIPINE 10MG TABLET PO SCH (08:52)
[2019-04-09] MEDS: LISINOPRIL 20MG TABLET PO SCH ×2 (08:52→21:00)
[2019-04-09] MEDS: ACETAMINOPHEN 325MG TABLET PO PRN (17:40)
[2019-04-09] MEDS: INSULIN LISPRO 100 UNITS/ML SUBCUT SCH (23:24)
[2019-04-10] VITALS (11 sets, daily range): BP systolic 98–149; BP diastolic 36–71
[2019-04-10] MEDS: IPRATROPIUM/ALBUTEROL 0.5-3(2.5)MG/3ML NEB HHN SCH ×4 (02:01→19:59)
[2019-04-10] MEDS: PANTOPRAZOLE SODIUM 40 MG/VIAL IV SCH ×2 (05:08→18:08)
[2019-04-10] MEDS: BLOOD SUGAR DIAGNOSTIC STRIP TEST SCH ×3 (05:08→17:31)
[2019-04-10] MEDS: LISINOPRIL 20MG TABLET PO SCH ×2 (08:09→21:19)
[2019-04-10] MEDS: AMLODIPINE 10MG TABLET PO SCH (08:09)
[2019-04-10] MEDS: DOCUSATE SODIUM SUGAR FREE 100MG/10ML UDC NG SCH ×2 (08:09→17:00)
[2019-04-10] MEDS: LEVETIRACETAM 500 MG in SODIUM CHLORIDE 0.9% 100 ML IV SCH ×2 (08:32→21:51)
[2019-04-10] MEDS: INSULIN LISPRO 100 UNITS/ML SUBCUT SCH ×2 (13:08→18:08)
[2019-04-10] MEDS: ACETAMINOPHEN 325MG TABLET PO PRN (15:30)
[2019-04-11] VITALS (9 sets, daily range): BP systolic 92–123; BP diastolic 59–63
[2019-04-11] MEDS: IPRATROPIUM/ALBUTEROL 0.5-3(2.5)MG/3ML NEB HHN SCH ×4 (02:25→20:28)
[2019-04-11] MEDS: INSULIN LISPRO 100 UNITS/ML SUBCUT SCH ×4 (05:44→18:00)
[2019-04-11] MEDS: BLOOD SUGAR DIAGNOSTIC STRIP TEST SCH ×4 (05:44→17:13)
[2019-04-11] MEDS: PANTOPRAZOLE SODIUM 40 MG/VIAL IV SCH ×2 (05:50→17:13)
[2019-04-11 07:08] LABS: CHLORIDE 116 mEq/L (98-107)
[2019-04-11 07:09] LABS: HEMATOCRIT. 29.5 % (42.0-52.0); HEMOGLOBIN. 9.2 g/dL (14.0-18.0); MEAN CORPUSCULAR HEMOGLOBIN 21.4 pg (28.0-32.0); MEAN CORPUSCULAR VOLUME 68.4 fL (80.0-94.0); RED BLOOD CELL COUNT 4.32 mill/uL (4.7-6.1); RED CELL DISTRIBUTION WIDTH 29.1 % (11.6-14.6)
[2019-04-11 08:30] LABS: PLATELET ESTIMATE DECREASED
[2019-04-11 08:32] LABS: MEAN PLATELET VOLUME 9.6 fl (7.4-10.4); PLATELET 100 x1000/uL (130-400)
[2019-04-11] MEDS: AMLODIPINE 10MG TABLET PO SCH (09:00)
[2019-04-11] MEDS: LISINOPRIL 20MG TABLET PO SCH ×2 (09:00→21:04)
[2019-04-11] MEDS: DOCUSATE SODIUM SUGAR FREE 100MG/10ML UDC NG SCH ×2 (09:42→17:13)
[2019-04-11] MEDS: LEVETIRACETAM 500 MG in SODIUM CHLORIDE 0.9% 100 ML IV SCH ×2 (09:42→21:05)
[2019-04-11] MEDS: ACETAMINOPHEN 325MG TABLET PO PRN (15:44)
[2019-04-12] VITALS (12 sets, daily range): BP systolic 91–142; BP diastolic 48–64
[2019-04-12] MEDS: IPRATROPIUM/ALBUTEROL 0.5-3(2.5)MG/3ML NEB HHN SCH ×4 (01:59→20:06)
[2019-04-12] MEDS: PANTOPRAZOLE SODIUM 40 MG/VIAL IV SCH ×2 (05:56→17:34)
[2019-04-12] MEDS: BLOOD SUGAR DIAGNOSTIC STRIP TEST SCH ×5 (06:00→23:47)
[2019-04-12] MEDS: INSULIN LISPRO 100 UNITS/ML SUBCUT SCH ×5 (06:00→23:55)
[2019-04-12] MEDS: LISINOPRIL 20MG TABLET PO SCH ×2 (09:00→21:00)
[2019-04-12] MEDS: AMLODIPINE 10MG TABLET PO SCH (09:00)
[2019-04-12] MEDS: DOCUSATE SODIUM SUGAR FREE 100MG/10ML UDC NG SCH ×2 (10:55→17:34)
[2019-04-12] MEDS: LEVETIRACETAM 500 MG in SODIUM CHLORIDE 0.9% 100 ML IV SCH ×2 (14:03→22:30)
[2019-04-13] VITALS (11 sets, daily range): BP systolic 95–131; BP diastolic 49–75
[2019-04-13] MEDS: IPRATROPIUM/ALBUTEROL 0.5-3(2.5)MG/3ML NEB HHN SCH ×5 (00:09→20:20)
[2019-04-13] MEDS: BLOOD SUGAR DIAGNOSTIC STRIP TEST SCH ×4 (05:30→23:13)
[2019-04-13] MEDS: INSULIN LISPRO 100 UNITS/ML SUBCUT SCH ×4 (05:31→23:23)
[2019-04-13] MEDS: PANTOPRAZOLE SODIUM 40 MG/VIAL IV SCH ×2 (06:21→17:35)
[2019-04-13 06:51] LABS: HEMATOCRIT 28.7 % (42.0-52.0); HEMOGLOBIN 8.9 g/dL (14.0-18.0); MEAN CORPUSCULAR HEMOGLOBIN 21.3 pg (28.0-32.0); MEAN CORPUSCULAR VOLUME 68.6 fL (80.0-94.0); RED BLOOD CELL COUNT 4.18 mill/uL (4.7-6.1)
[2019-04-13 06:56] LABS: CHLORIDE 117 mEq/L (98-107)
[2019-04-13 07:06] LABS: TOTAL IRON BINDING CAPACITY 147 ug/dL (250-450)
[2019-04-13] MEDS: DOCUSATE SODIUM SUGAR FREE 100MG/10ML UDC NG SCH ×2 (09:00→17:35)
[2019-04-13] MEDS: LEVETIRACETAM 500 MG in SODIUM CHLORIDE 0.9% 100 ML IV SCH ×2 (09:00→21:07)
[2019-04-13] MEDS: AMLODIPINE 10MG TABLET PO SCH (09:00)
[2019-04-13] MEDS: LISINOPRIL 20MG TABLET PO SCH ×2 (09:00→21:29)
[2019-04-13 10:20] LABS: PLATELET 115 x1000/uL (130-400)
[2019-04-13] MEDS: ACETAMINOPHEN 325MG TABLET PO PRN (23:11)
[2019-04-14] VITALS (14 sets, daily range): BP systolic 95–143; BP diastolic 48–77
[2019-04-14] MEDS: IPRATROPIUM/ALBUTEROL 0.5-3(2.5)MG/3ML NEB HHN SCH ×5 (01:51→19:50)
[2019-04-14] MEDS: BLOOD SUGAR DIAGNOSTIC STRIP TEST SCH ×4 (05:38→23:12)
[2019-04-14] MEDS: INSULIN LISPRO 100 UNITS/ML SUBCUT SCH ×3 (05:45→17:49)
[2019-04-14] MEDS: PANTOPRAZOLE SODIUM 40 MG/VIAL IV SCH ×2 (05:45→17:21)
[2019-04-14] MEDS: DOCUSATE SODIUM SUGAR FREE 100MG/10ML UDC NG SCH ×2 (08:55→17:48)
[2019-04-14] MEDS: LEVETIRACETAM 500 MG in SODIUM CHLORIDE 0.9% 100 ML IV SCH ×2 (08:55→23:11)
[2019-04-14] MEDS: MAGNESIUM/ALUMINUM HYDROXIDE/SIMETHICONE 30ML UDC PO PRN (08:55)
[2019-04-14] MEDS: FERROUS SULFATE 300MG/5ML UDC PO SCH ×3 (08:55→17:21)
[2019-04-14] MEDS: LISINOPRIL 20MG TABLET PO SCH ×2 (08:56→21:00)
[2019-04-14] MEDS: AMLODIPINE 10MG TABLET PO SCH (08:58)
[2019-04-14] MEDS: ACETAMINOPHEN 325MG TABLET PO PRN (13:45)
[2019-04-14 16:15] LABS: CHLORIDE 113 mEq/L (98-107)
[2019-04-15] VITALS (12 sets, daily range): BP systolic 97–126; BP diastolic 45–71
[2019-04-15] MEDS: IPRATROPIUM/ALBUTEROL 0.5-3(2.5)MG/3ML NEB HHN SCH ×4 (02:32→20:47)
[2019-04-15] MEDS: BLOOD SUGAR DIAGNOSTIC STRIP TEST SCH ×3 (05:58→18:20)
[2019-04-15] MEDS: INSULIN LISPRO 100 UNITS/ML SUBCUT SCH ×4 (05:59→18:00)
[2019-04-15] MEDS: PANTOPRAZOLE SODIUM 40 MG/VIAL IV SCH ×2 (06:00→18:21)
[2019-04-15 07:22] LABS: HEMATOCRIT. 24.2 % (42.0-52.0); HEMOGLOBIN. 7.7 g/dL (14.0-18.0); MEAN CORPUSCULAR HEMOGLOBIN 21.1 pg (28.0-32.0); MEAN CORPUSCULAR VOLUME 66.5 fL (80.0-94.0); RED BLOOD CELL COUNT 3.64 mill/uL (4.7-6.1); RED CELL DISTRIBUTION WIDTH 31.1 % (11.6-14.6)
[2019-04-15 07:34] LABS: CHLORIDE 111 mEq/L (98-107)
[2019-04-15] MEDS: FERROUS SULFATE 300MG/5ML UDC PO SCH ×3 (08:18→18:21)
[2019-04-15] MEDS: ACETAMINOPHEN 325MG TABLET PO PRN ×2 (08:19→22:37)
[2019-04-15] MEDS: AMLODIPINE 10MG TABLET PO SCH (09:00)
[2019-04-15] MEDS: LISINOPRIL 20MG TABLET PO SCH ×2 (09:00→20:42)
[2019-04-15] MEDS: LEVETIRACETAM 500 MG in SODIUM CHLORIDE 0.9% 100 ML IV SCH ×2 (09:25→20:42)
[2019-04-15] MEDS: DOCUSATE SODIUM SUGAR FREE 100MG/10ML UDC NG SCH ×2 (09:25→17:00)
[2019-04-15 12:32] LABS: NUCLEATED RED BLOOD CELLS 8 /100 WBC
[2019-04-15 12:37] LABS: PLATELET ESTIMATE NORMAL
[2019-04-15 12:38] LABS: PLATELET 150 x1000/uL (130-400)
[2019-04-16] VITALS (13 sets, daily range): BP systolic 94–121; BP diastolic 47–86
[2019-04-16] MEDS: BLOOD SUGAR DIAGNOSTIC STRIP TEST SCH ×4 (05:21→17:21)
[2019-04-16] MEDS: INSULIN LISPRO 100 UNITS/ML SUBCUT SCH ×4 (05:22→17:21)
[2019-04-16] MEDS: PANTOPRAZOLE SODIUM 40 MG/VIAL IV SCH ×2 (05:24→17:28)
[2019-04-16 07:46] LABS: MEAN CORPUSCULAR HEMOGLOBIN 21.2 pg (28.0-32.0); MEAN CORPUSCULAR VOLUME 66.4 fL (80.0-94.0); MEAN PLATELET VOLUME 9.9 fl (7.4-10.4); PLATELET 145 x1000/uL (130-400); RED BLOOD CELL COUNT 3.77 mill/uL (4.7-6.1); RED CELL DISTRIBUTION WIDTH 30.4 % (11.6-14.6)
[2019-04-16] MEDS: FERROUS SULFATE 300MG/5ML UDC PO SCH ×3 (08:11→17:28)
[2019-04-16] MEDS: DOCUSATE SODIUM SUGAR FREE 100MG/10ML UDC NG SCH ×2 (08:11→17:28)
[2019-04-16] MEDS: LEVETIRACETAM 500 MG in SODIUM CHLORIDE 0.9% 100 ML IV SCH ×2 (08:11→21:43)
[2019-04-16] MEDS: ACETAMINOPHEN 325MG TABLET PO PRN (08:11)
[2019-04-16] MEDS: LISINOPRIL 20MG TABLET PO SCH ×3 (08:12→21:00)
[2019-04-16] MEDS: AMLODIPINE 10MG TABLET PO SCH (08:13)
[2019-04-16 08:31] LABS: CHLORIDE 109 mEq/L (98-107)
[2019-04-16 10:49] LABS: PLATELET ESTIMATE NORMAL
[2019-04-16] MEDS: IPRATROPIUM/ALBUTEROL 0.5-3(2.5)MG/3ML NEB HHN SCH (19:50)
[2019-04-17] VITALS (12 sets, daily range): BP systolic 76–128; BP diastolic 47–65
[2019-04-17] MEDS: BLOOD SUGAR DIAGNOSTIC STRIP TEST SCH ×4 (00:27→18:00)
[2019-04-17] MEDS: ACETAMINOPHEN 325MG TABLET PO PRN (00:46)
[2019-04-17] MEDS: IPRATROPIUM/ALBUTEROL 0.5-3(2.5)MG/3ML NEB HHN SCH ×3 (01:56→20:10)
[2019-04-17] MEDS: INSULIN LISPRO 100 UNITS/ML SUBCUT SCH ×4 (06:00→17:45)
[2019-04-17] MEDS: PANTOPRAZOLE SODIUM 40 MG/VIAL IV SCH ×2 (06:28→16:43)
[2019-04-17 07:56] LABS: CHLORIDE 108 mEq/L (98-107)
[2019-04-17 07:59] LABS: HEMATOCRIT. 27.3 % (42.0-52.0); HEMOGLOBIN. 8.6 g/dL (14.0-18.0); MEAN CORPUSCULAR VOLUME 67.2 fL (80.0-94.0); MEAN PLATELET VOLUME 9.4 fl (7.4-10.4); PLATELET 167 x1000/uL (130-400); RED BLOOD CELL COUNT 4.07 mill/uL (4.7-6.1); RED CELL DISTRIBUTION WIDTH 32.1 % (11.6-14.6)
[2019-04-17] MEDS: DOCUSATE SODIUM SUGAR FREE 100MG/10ML UDC NG SCH ×2 (08:53→16:43)
[2019-04-17] MEDS: FERROUS SULFATE 300MG/5ML UDC PO SCH ×3 (08:53→17:32)
[2019-04-17] MEDS: LISINOPRIL 20MG TABLET PO SCH ×2 (08:56→21:00)
[2019-04-17] MEDS: AMLODIPINE 10MG TABLET PO SCH (08:56)
[2019-04-17 09:10] LABS: NUCLEATED RED BLOOD CELLS 14 /100 WBC
[2019-04-17 09:11] LABS: PLATELET ESTIMATE NORMAL
[2019-04-17] MEDS: LEVETIRACETAM 500 MG in SODIUM CHLORIDE 0.9% 100 ML IV SCH ×2 (10:47→23:36)
[2019-04-17] MEDS: CEFEPIME 1,000 MG in DEXTROSE 5% WATER 50 ML IV SCH (13:55)
[2019-04-17] MEDS ORDERED: VANCOMYCIN 1250MG in DEXTROSE 5% WATER 250ML IV NR (14:00)
[2019-04-17] MEDS ORDERED: SODIUM CHLORIDE 0.9% 500 ML IV SCH (19:15)
[2019-04-17] MEDS ORDERED: CEFEPIME HCL 1000MG/VIAL INJ IM SCH (21:00)
[2019-04-17] MEDS ORDERED: VANCOMYCIN 750 MG PREMIX 150 ML IV SCH (22:00)
[2019-04-18] VITALS (29 sets, daily range): BP systolic 81–118; BP diastolic 45–95
[2019-04-18] MEDS: CEFEPIME 1,000 MG in DEXTROSE 5% WATER 50 ML IV SCH ×2 (01:00→12:18)
[2019-04-18] MEDS: VANCOMYCIN 750 MG PREMIX 150 ML IV SCH ×3 (01:08→13:18)
[2019-04-18] MEDS: IPRATROPIUM/ALBUTEROL 0.5-3(2.5)MG/3ML NEB HHN SCH ×2 (03:35→20:13)
[2019-04-18] MEDS: INSULIN LISPRO 100 UNITS/ML SUBCUT SCH ×4 (06:00→17:21)
[2019-04-18] MEDS: PANTOPRAZOLE SODIUM 40 MG/VIAL IV SCH (06:00)
[2019-04-18] MEDS: DOCUSATE SODIUM SUGAR FREE 100MG/10ML UDC NG SCH ×2 (08:19→17:24)
[2019-04-18] MEDS: AMLODIPINE 10MG TABLET PO SCH (08:19)
[2019-04-18] MEDS: FERROUS SULFATE 300MG/5ML UDC PO SCH ×3 (08:19→17:24)
[2019-04-18] MEDS: LISINOPRIL 20MG TABLET PO SCH ×2 (08:19→21:00)
[2019-04-18] MEDS: LEVETIRACETAM 500 MG in SODIUM CHLORIDE 0.9% 100 ML IV SCH ×2 (08:21→21:47)
[2019-04-18 15:11] LABS: CHLORIDE 109 mEq/L (98-107)
[2019-04-18] MEDS ORDERED: SODIUM CHLORIDE 0.9% 500 ML IV NR (16:00)
[2019-04-18 16:44] LABS: MEAN CORPUSCULAR HEMOGLOBIN 21.1 pg (28.0-32.0); MEAN CORPUSCULAR VOLUME 66.8 fL (80.0-94.0); MEAN PLATELET VOLUME 9.1 fl (7.4-10.4); PLATELET 148 x1000/uL (130-400); RED BLOOD CELL COUNT 3.04 mill/uL (4.7-6.1); RED CELL DISTRIBUTION WIDTH 31.6 % (11.6-14.6)
[2019-04-18 16:52] LABS: HEMATOCRIT. 20.3 % (42.0-52.0); HEMOGLOBIN. 6.4 g/dL (14.0-18.0)
[2019-04-18 19:07] LABS: NUCLEATED RED BLOOD CELLS 17 /100 WBC
[2019-04-18 19:08] LABS: PLATELET ESTIMATE NORMAL
[2019-04-19] VITALS (20 sets, daily range): BP systolic 89–118; BP diastolic 53–70
[2019-04-19] MEDS: VANCOMYCIN 750 MG PREMIX 150 ML IV SCH ×4 (02:11→21:22)
[2019-04-19] MEDS: INSULIN LISPRO 100 UNITS/ML SUBCUT SCH ×5 (06:00→23:47)
[2019-04-19] MEDS: CEFEPIME 1,000 MG in DEXTROSE 5% WATER 50 ML IV SCH ×2 (06:14→12:24)
[2019-04-19] MEDS: DOCUSATE SODIUM SUGAR FREE 100MG/10ML UDC NG SCH ×2 (08:14→18:29)
[2019-04-19] MEDS: FERROUS SULFATE 300MG/5ML UDC PO SCH ×3 (08:15→18:29)
[2019-04-19] MEDS: AMLODIPINE 10MG TABLET PO SCH (08:17)
[2019-04-19] MEDS: LISINOPRIL 20MG TABLET PO SCH ×2 (08:17→20:22)
[2019-04-19] MEDS: LEVETIRACETAM 500 MG in SODIUM CHLORIDE 0.9% 100 ML IV SCH (11:04)
[2019-04-19 12:54] LABS: HEMATOCRIT. 29.7 % (42.0-52.0); HEMOGLOBIN. 9.7 g/dL (14.0-18.0); MEAN CORPUSCULAR HEMOGLOBIN 23.5 pg (28.0-32.0); MEAN CORPUSCULAR VOLUME 71.6 fL (80.0-94.0); MEAN PLATELET VOLUME 9.3 fl (7.4-10.4); PLATELET 144 x1000/uL (130-400); RED BLOOD CELL COUNT 4.15 mill/uL (4.7-6.1); RED CELL DISTRIBUTION WIDTH 31.8 % (11.6-14.6)
[2019-04-19 16:40] LABS: NUCLEATED RED BLOOD CELLS 16 /100 WBC; PLATELET ESTIMATE NORMAL
[2019-04-20] VITALS (13 sets, daily range): BP systolic 89–114; BP diastolic 57–68
[2019-04-20] MEDS: CEFEPIME 1,000 MG in DEXTROSE 5% WATER 50 ML IV SCH ×2 (00:04→13:17)
[2019-04-20] MEDS: VANCOMYCIN 750 MG PREMIX 150 ML IV SCH ×3 (05:21→21:16)
[2019-04-20] MEDS: INSULIN LISPRO 100 UNITS/ML SUBCUT SCH ×3 (06:00→17:45)
[2019-04-20] MEDS: AMLODIPINE 10MG TABLET PO SCH (09:00)
[2019-04-20] MEDS: LISINOPRIL 20MG TABLET PO SCH ×2 (09:00→21:00)
[2019-04-20] MEDS: DOCUSATE SODIUM SUGAR FREE 100MG/10ML UDC NG SCH ×2 (09:09→17:41)
[2019-04-20] MEDS: FERROUS SULFATE 300MG/5ML UDC PO SCH ×3 (09:09→17:41)
[2019-04-20 10:54] LABS: HEMATOCRIT. 32.7 % (42.0-52.0); HEMOGLOBIN. 10.8 g/dL (14.0-18.0); MEAN CORPUSCULAR HEMOGLOBIN 23.6 pg (28.0-32.0); MEAN CORPUSCULAR VOLUME 71.6 fL (80.0-94.0); MEAN PLATELET VOLUME 9.1 fl (7.4-10.4); PLATELET 150 x1000/uL (130-400); RED BLOOD CELL COUNT 4.57 mill/uL (4.7-6.1); RED CELL DISTRIBUTION WIDTH 32.4 % (11.6-14.6)
[2019-04-20 10:57] LABS: CHLORIDE 102 mEq/L (98-107)
[2019-04-20 13:11] LABS: NUCLEATED RED BLOOD CELLS 6 /100 WBC
[2019-04-20 13:12] LABS: PLATELET ESTIMATE NORMAL
[2019-04-21] VITALS (14 sets, daily range): BP systolic 100–139; BP diastolic 57–73
[2019-04-21] MEDS: CEFEPIME 1,000 MG in DEXTROSE 5% WATER 50 ML IV SCH ×2 (00:06→12:38)
[2019-04-21] MEDS: VANCOMYCIN 750 MG PREMIX 150 ML IV SCH ×3 (05:34→21:22)
[2019-04-21] MEDS: INSULIN LISPRO 100 UNITS/ML SUBCUT SCH ×4 (05:39→17:05)
[2019-04-21] MEDS: AMLODIPINE 10MG TABLET PO SCH (09:00)
[2019-04-21] MEDS: LISINOPRIL 20MG TABLET PO SCH ×2 (09:00→20:43)
[2019-04-21] MEDS: FERROUS SULFATE 300MG/5ML UDC PO SCH ×3 (09:09→17:06)
[2019-04-21] MEDS: DOCUSATE SODIUM SUGAR FREE 100MG/10ML UDC NG SCH ×2 (09:09→17:06)
[2019-04-22] VITALS (16 sets, daily range): BP systolic 57–128; BP diastolic 38–79
[2019-04-22] MEDS: CEFEPIME 1,000 MG in DEXTROSE 5% WATER 50 ML IV SCH ×2 (00:36→13:02)
[2019-04-22] MEDS: INSULIN LISPRO 100 UNITS/ML SUBCUT SCH ×4 (05:59→17:25)
[2019-04-22] MEDS: VANCOMYCIN 750 MG PREMIX 150 ML IV SCH (05:59)
[2019-04-22] MEDS: FERROUS SULFATE 300MG/5ML UDC PO SCH ×3 (10:08→17:23)
[2019-04-22] MEDS: AMLODIPINE 10MG TABLET PO SCH (10:09)
[2019-04-22] MEDS: DOCUSATE SODIUM SUGAR FREE 100MG/10ML UDC NG SCH ×2 (10:09→17:23)
[2019-04-22] MEDS: LISINOPRIL 20MG TABLET PO SCH ×2 (10:09→21:30)
[2019-04-22] MEDS: VANCOMYCIN 1 G PREMIX 200 ML IV SCH (18:18)
[2019-04-23] VITALS (15 sets, daily range): BP systolic 90–127; BP diastolic 54–79
[2019-04-23] MEDS: INSULIN LISPRO 100 UNITS/ML SUBCUT SCH ×4 (00:03→18:10)
[2019-04-23] MEDS: CEFEPIME 1,000 MG in DEXTROSE 5% WATER 50 ML IV SCH ×2 (00:13→12:51)
[2019-04-23] MEDS: VANCOMYCIN 1 G PREMIX 200 ML IV SCH ×2 (05:59→17:33)
[2019-04-23] MEDS: FERROUS SULFATE 300MG/5ML UDC PO SCH ×3 (08:31→17:33)
[2019-04-23] MEDS: LISINOPRIL 20MG TABLET PO SCH ×2 (08:32→21:00)
[2019-04-23] MEDS: AMLODIPINE 10MG TABLET PO SCH (08:32)
[2019-04-23] MEDS: DOCUSATE SODIUM SUGAR FREE 100MG/10ML UDC NG SCH ×2 (09:02→17:33)
[2019-04-23] MEDS ORDERED: DEXTROSE 50% WATER 50ML SYRINGE IV PRN ×2 (17:45→18:00)
[2019-04-23] MEDS ORDERED: BLOOD SUGAR DIAGNOSTIC STRIP TEST SCH (18:00)
[2019-04-23] MEDS: BLOOD SUGAR DIAGNOSTIC STRIP TEST SCH (18:09)
[2019-04-24] VITALS (15 sets, daily range): BP systolic 93–127; BP diastolic 60–78
[2019-04-24] MEDS: BLOOD SUGAR DIAGNOSTIC STRIP TEST SCH ×4 (00:46→17:16)
[2019-04-24] MEDS: CEFEPIME 1,000 MG in DEXTROSE 5% WATER 50 ML IV SCH ×2 (00:46→12:29)
[2019-04-24] MEDS: INSULIN LISPRO 100 UNITS/ML SUBCUT SCH ×4 (06:00→17:42)
[2019-04-24] MEDS: VANCOMYCIN 1 G PREMIX 200 ML IV SCH ×2 (06:26→17:16)
[2019-04-24] MEDS: AMLODIPINE 10MG TABLET PO SCH (08:19)
[2019-04-24] MEDS: FERROUS SULFATE 300MG/5ML UDC PO SCH ×3 (08:19→17:15)
[2019-04-24] MEDS: LISINOPRIL 20MG TABLET PO SCH ×2 (08:19→21:00)
[2019-04-24] MEDS: DOCUSATE SODIUM SUGAR FREE 100MG/10ML UDC NG SCH ×2 (08:19→17:15)
[2019-04-25] VITALS (12 sets, daily range): BP systolic 95–131; BP diastolic 57–75
[2019-04-25] MEDS: BLOOD SUGAR DIAGNOSTIC STRIP TEST SCH ×4 (00:48→17:57)
[2019-04-25] MEDS: INSULIN LISPRO 100 UNITS/ML SUBCUT SCH ×4 (06:00→17:57)
[2019-04-25] MEDS: VANCOMYCIN 1 G PREMIX 200 ML IV SCH ×2 (06:05→17:45)
[2019-04-25] MEDS: AMLODIPINE 10MG TABLET PO SCH (08:23)
[2019-04-25] MEDS: FERROUS SULFATE 300MG/5ML UDC PO SCH ×3 (08:24→17:45)
[2019-04-25] MEDS: DOCUSATE SODIUM SUGAR FREE 100MG/10ML UDC NG SCH ×2 (08:24→17:45)
[2019-04-25] MEDS: LISINOPRIL 20MG TABLET PO SCH ×2 (08:24→21:00)
[2019-04-25] MEDS: ACETAMINOPHEN 650MG/20.3ML UDC GT PRN (20:15)
[2019-04-26] VITALS (12 sets, daily range): BP systolic 94–129; BP diastolic 56–73
[2019-04-26] MEDS: INSULIN LISPRO 100 UNITS/ML SUBCUT SCH ×4 (00:38→17:20)
[2019-04-26] MEDS: ACETAMINOPHEN 650MG/20.3ML UDC GT PRN ×2 (02:34→12:22)
[2019-04-26] MEDS: BLOOD SUGAR DIAGNOSTIC STRIP TEST SCH ×4 (06:25→17:23)
[2019-04-26] MEDS: VANCOMYCIN 1 G PREMIX 200 ML IV SCH ×2 (06:25→17:16)
[2019-04-26 06:55] LABS: BASOPHILS % 0.2 % (0.0-2.0); HEMATOCRIT. 33.4 % (42.0-52.0); HEMOGLOBIN. 10.5 g/dL (14.0-18.0); LYMPHOCYTES % 8.6 % (20.0-50.0); MEAN CORPUSCULAR VOLUME 73.5 fL (80.0-94.0); MEAN PLATELET VOLUME 8.6 fl (7.4-10.4); MONOCYTES % 4.2 % (2.0-8.0); PLATELET 196 x1000/uL (130-400); RED BLOOD CELL COUNT 4.54 mill/uL (4.7-6.1); RED CELL DISTRIBUTION WIDTH 33.1 % (11.6-14.6)
[2019-04-26 08:20] LABS: CHLORIDE 99 mEq/L (98-107)
[2019-04-26 08:28] LABS: VANCOMYCIN TROUGH 18.5 ug/mL (5.0-10.0)
[2019-04-26] MEDS: FERROUS SULFATE 300MG/5ML UDC PO SCH ×3 (08:36→17:18)
[2019-04-26] MEDS: AMLODIPINE 10MG TABLET PO SCH (08:36)
[2019-04-26] MEDS: LISINOPRIL 20MG TABLET PO SCH ×2 (08:37→21:00)
[2019-04-26] MEDS: CEFEPIME 1,000 MG in DEXTROSE 5% WATER 50 ML IV SCH (17:10)
[2019-04-26] MEDS: DILTIAZEM HCL 30MG TABLET PO SCH ×2 (17:18→17:24)
[2019-04-26 19:41] LABS: CLARITY URINE CLOUDY (CLEAR); COLOR URINE YELLOW (YELLOW); KETONES URINE NEGATIVE (NEGATIVE); LEUKOCYTE ESTERASE URINE 1+ (NEGATIVE); NITRITE URINE NEGATIVE (NEGATIVE); OCCULT BLOOD URINE TRACE (NEGATIVE); PH URINE 6.5 (4.5-8.0); PROTEIN URINE 2+ (NEGATIVE); SPECIFIC GRAVITY URINE 1.021 (1.005-1.030)
[2019-04-27] VITALS (14 sets, daily range): BP systolic 93–127; BP diastolic 53–72
[2019-04-27] MEDS: BLOOD SUGAR DIAGNOSTIC STRIP TEST SCH ×4 (00:10→18:24)
[2019-04-27] MEDS: INSULIN LISPRO 100 UNITS/ML SUBCUT SCH ×4 (00:18→18:00)
[2019-04-27] MEDS: ACETAMINOPHEN 650MG/20.3ML UDC GT PRN ×2 (00:27→12:30)
[2019-04-27] MEDS: CEFEPIME 1,000 MG in DEXTROSE 5% WATER 50 ML IV SCH ×2 (04:39→18:15)
[2019-04-27] MEDS: DILTIAZEM HCL 30MG TABLET PO SCH ×4 (05:33→18:16)
[2019-04-27] MEDS: VANCOMYCIN 1 G PREMIX 200 ML IV SCH ×2 (05:33→18:16)
[2019-04-27 06:26] LABS: BASOPHILS % 0.2 % (0.0-2.0); EOSINOPHILS % 0.1 % (0.0-5.0); HEMATOCRIT. 29.8 % (42.0-52.0); HEMOGLOBIN. 9.5 g/dL (14.0-18.0); LYMPHOCYTES % 8.8 % (20.0-50.0); MEAN CORPUSCULAR HEMOGLOBIN 23.1 pg (28.0-32.0); MEAN CORPUSCULAR VOLUME 72.4 fL (80.0-94.0); MEAN PLATELET VOLUME 8.9 fl (7.4-10.4); MONOCYTES % 3.9 % (2.0-8.0); PLATELET 215 x1000/uL (130-400); RED BLOOD CELL COUNT 4.12 mill/uL (4.7-6.1); RED CELL DISTRIBUTION WIDTH 33.5 % (11.6-14.6)
[2019-04-27 07:00] LABS: CHLORIDE 100 mEq/L (98-107)
[2019-04-27] MEDS: LISINOPRIL 20MG TABLET PO SCH ×2 (09:00→22:37)
[2019-04-27] MEDS: AMLODIPINE 10MG TABLET PO SCH (09:00)
[2019-04-27] MEDS: FERROUS SULFATE 300MG/5ML UDC PO SCH ×3 (09:04→18:16)
[2019-04-27] MEDS: IPRATROPIUM/ALBUTEROL 0.5-3(2.5)MG/3ML NEB HHN SCH (20:31)
[2019-04-27 20:44] LABS: PLATELET ESTIMATE NORMAL
[2019-04-28] VITALS (15 sets, daily range): BP systolic 89–126; BP diastolic 53–71
[2019-04-28] MEDS: DILTIAZEM HCL 30MG TABLET PO SCH ×5 (00:12→23:31)
[2019-04-28] MEDS: IPRATROPIUM/ALBUTEROL 0.5-3(2.5)MG/3ML NEB HHN SCH ×4 (00:45→20:41)
[2019-04-28] MEDS: CEFEPIME 1,000 MG in DEXTROSE 5% WATER 50 ML IV SCH ×2 (06:10→15:12)
[2019-04-28] MEDS: BLOOD SUGAR DIAGNOSTIC STRIP TEST SCH ×5 (06:15→23:31)
[2019-04-28] MEDS: INSULIN LISPRO 100 UNITS/ML SUBCUT SCH ×5 (06:20→23:26)
[2019-04-28] MEDS: FERROUS SULFATE 300MG/5ML UDC PO SCH ×3 (08:16→17:32)
[2019-04-28] MEDS: AMLODIPINE 10MG TABLET PO SCH (08:16)
[2019-04-28] MEDS: ACETAMINOPHEN 650MG/20.3ML UDC GT PRN (08:16)
[2019-04-28] MEDS: LISINOPRIL 20MG TABLET PO SCH ×2 (08:17→20:22)
[2019-04-28] MEDS: VANCOMYCIN 1 G PREMIX 200 ML IV SCH ×2 (10:15→21:38)
[2019-04-29] VITALS (13 sets, daily range): BP systolic 85–125; BP diastolic 51–71
[2019-04-29] MEDS: IPRATROPIUM/ALBUTEROL 0.5-3(2.5)MG/3ML NEB HHN SCH ×4 (02:27→20:28)
[2019-04-29] MEDS: CEFEPIME 1,000 MG in DEXTROSE 5% WATER 50 ML IV SCH ×2 (03:22→16:01)
[2019-04-29] MEDS: INSULIN LISPRO 100 UNITS/ML SUBCUT SCH ×3 (05:38→18:00)
[2019-04-29] MEDS: DILTIAZEM HCL 30MG TABLET PO SCH ×3 (05:38→18:08)
[2019-04-29] MEDS: BLOOD SUGAR DIAGNOSTIC STRIP TEST SCH ×3 (05:38→18:08)
[2019-04-29] MEDS: LISINOPRIL 20MG TABLET PO SCH ×2 (09:00→21:00)
[2019-04-29] MEDS: AMLODIPINE 10MG TABLET PO SCH (09:00)
[2019-04-29] MEDS: ACETAMINOPHEN 650MG/20.3ML UDC GT PRN ×2 (09:40→21:44)
[2019-04-29] MEDS: VANCOMYCIN 1 G PREMIX 200 ML IV SCH ×2 (09:41→21:45)
[2019-04-29] MEDS: FERROUS SULFATE 300MG/5ML UDC PO SCH ×3 (09:45→18:08)
[2019-04-30] VITALS (12 sets, daily range): BP systolic 98–124; BP diastolic 56–72
[2019-04-30] MEDS: BLOOD SUGAR DIAGNOSTIC STRIP TEST SCH ×5 (00:30→23:38)
[2019-04-30] MEDS: INSULIN LISPRO 100 UNITS/ML SUBCUT SCH ×5 (00:46→23:38)
[2019-04-30] MEDS: IPRATROPIUM/ALBUTEROL 0.5-3(2.5)MG/3ML NEB HHN SCH ×4 (01:59→20:29)
[2019-04-30] MEDS: CEFEPIME 1,000 MG in DEXTROSE 5% WATER 50 ML IV SCH ×2 (04:13→17:52)
[2019-04-30] MEDS: DILTIAZEM HCL 30MG TABLET PO SCH ×5 (06:00→23:36)
[2019-04-30 07:38] LABS: HEMATOCRIT. 28.7 % (42.0-52.0); MEAN CORPUSCULAR HEMOGLOBIN 22.7 pg (28.0-32.0); MEAN CORPUSCULAR VOLUME 72.8 fL (80.0-94.0); MEAN PLATELET VOLUME 8.9 fl (7.4-10.4); PLATELET 288 x1000/uL (130-400); RED BLOOD CELL COUNT 3.94 mill/uL (4.7-6.1); RED CELL DISTRIBUTION WIDTH 33.6 % (11.6-14.6)
[2019-04-30 08:38] LABS: CHLORIDE 100 mEq/L (98-107)
[2019-04-30] MEDS: LISINOPRIL 20MG TABLET PO SCH ×2 (09:00→21:00)
[2019-04-30] MEDS: AMLODIPINE 10MG TABLET PO SCH (09:00)
[2019-04-30] MEDS: VANCOMYCIN 1 G PREMIX 200 ML IV SCH ×2 (09:16→21:22)
[2019-04-30] MEDS: FERROUS SULFATE 300MG/5ML UDC PO SCH ×3 (09:17→17:53)
[2019-04-30] MEDS: ACETAMINOPHEN 650MG/20.3ML UDC GT PRN (12:33)
[2019-05-01] VITALS (12 sets, daily range): BP systolic 98–121; BP diastolic 58–74
[2019-05-01] MEDS: IPRATROPIUM/ALBUTEROL 0.5-3(2.5)MG/3ML NEB HHN SCH ×4 (02:03→20:10)
[2019-05-01] MEDS: CEFEPIME 1,000 MG in DEXTROSE 5% WATER 50 ML IV SCH ×2 (04:15→16:35)
[2019-05-01] MEDS: DILTIAZEM HCL 30MG TABLET PO SCH ×3 (05:57→18:05)
[2019-05-01] MEDS: BLOOD SUGAR DIAGNOSTIC STRIP TEST SCH ×3 (06:01→17:44)
[2019-05-01] MEDS: INSULIN LISPRO 100 UNITS/ML SUBCUT SCH ×3 (06:03→17:45)
[2019-05-01] MEDS: AMLODIPINE 10MG TABLET PO SCH (09:00)
[2019-05-01] MEDS: LISINOPRIL 20MG TABLET PO SCH ×2 (09:00→21:27)
[2019-05-01] MEDS: FERROUS SULFATE 300MG/5ML UDC PO SCH ×3 (09:07→18:03)
[2019-05-01] MEDS: ACETAMINOPHEN 650MG/20.3ML UDC GT PRN (11:47)
[2019-05-01 14:06] LABS: NUCLEATED RED BLOOD CELLS 2 /100 WBC
[2019-05-01 14:07] LABS: PLATELET ESTIMATE NORMAL
[2019-05-02] VITALS (13 sets, daily range): BP systolic 92–127; BP diastolic 52–77
[2019-05-02] MEDS: BLOOD SUGAR DIAGNOSTIC STRIP TEST SCH ×4 (00:12→18:36)
[2019-05-02] MEDS: INSULIN LISPRO 100 UNITS/ML SUBCUT SCH ×4 (00:13→18:00)
[2019-05-02] MEDS: IPRATROPIUM/ALBUTEROL 0.5-3(2.5)MG/3ML NEB HHN SCH ×4 (02:03→20:28)
[2019-05-02] MEDS: CEFEPIME 1,000 MG in DEXTROSE 5% WATER 50 ML IV SCH ×2 (04:46→16:54)
[2019-05-02] MEDS: DILTIAZEM HCL 30MG TABLET PO SCH ×4 (05:38→18:00)
[2019-05-02] MEDS: ACETAMINOPHEN 650MG/20.3ML UDC GT PRN (06:48)
[2019-05-02] MEDS: FERROUS SULFATE 300MG/5ML UDC PO SCH ×3 (08:39→18:00)
[2019-05-02] MEDS: AMLODIPINE 10MG TABLET PO SCH (08:40)
[2019-05-02] MEDS: LISINOPRIL 20MG TABLET PO SCH ×2 (08:41→22:05)
[2019-05-03] VITALS (19 sets, daily range): BP systolic 92–131; BP diastolic 55–79
[2019-05-03] MEDS: ACETAMINOPHEN 650MG/20.3ML UDC GT PRN ×4 (00:02→22:24)
[2019-05-03] MEDS: DILTIAZEM HCL 30MG TABLET PO SCH ×4 (00:02→20:56)
[2019-05-03] MEDS: BLOOD SUGAR DIAGNOSTIC STRIP TEST SCH ×4 (00:40→18:00)
[2019-05-03] MEDS: INSULIN LISPRO 100 UNITS/ML SUBCUT SCH ×4 (00:41→19:12)
[2019-05-03] MEDS: IPRATROPIUM/ALBUTEROL 0.5-3(2.5)MG/3ML NEB HHN SCH ×3 (02:10→20:17)
[2019-05-03] MEDS: CEFEPIME 1,000 MG in DEXTROSE 5% WATER 50 ML IV SCH ×2 (05:45→16:33)
[2019-05-03] MEDS: FERROUS SULFATE 300MG/5ML UDC PO SCH ×3 (08:30→19:11)
[2019-05-03] MEDS: LISINOPRIL 20MG TABLET PO SCH ×2 (08:32→20:56)
[2019-05-03] MEDS: AMLODIPINE 10MG TABLET PO SCH (08:32)
[2019-05-03] MEDS ORDERED: SODIUM CHLORIDE 0.9% 1,000 ML IV ONE (08:45)
[2019-05-03] MEDS ORDERED: SODIUM CHLORIDE 0.9% 500 ML IV ONE (16:00)
[2019-05-04] VITALS (12 sets, daily range): BP systolic 102–135; BP diastolic 64–83
[2019-05-04] MEDS: BLOOD SUGAR DIAGNOSTIC STRIP TEST SCH ×4 (00:32→18:30)
[2019-05-04] MEDS: IPRATROPIUM/ALBUTEROL 0.5-3(2.5)MG/3ML NEB HHN SCH ×2 (02:22→20:09)
[2019-05-04] MEDS: INSULIN LISPRO 100 UNITS/ML SUBCUT SCH ×4 (06:00→18:00)
[2019-05-04] MEDS: DILTIAZEM HCL 30MG TABLET PO SCH ×4 (06:12→18:29)
[2019-05-04 07:14] LABS: BASOPHILS % 0.2 % (0.0-2.0); HEMATOCRIT. 26.7 % (42.0-52.0); HEMOGLOBIN. 8.4 g/dL (14.0-18.0); LYMPHOCYTES % 7.4 % (20.0-50.0); MEAN CORPUSCULAR HEMOGLOBIN 22.5 pg (28.0-32.0); MEAN CORPUSCULAR VOLUME 71.7 fL (80.0-94.0); MONOCYTES % 6.2 % (2.0-8.0); NEUTROPHILS % 86.2 % (40.0-76.0); PLATELET 299 x1000/uL (130-400); RED BLOOD CELL COUNT 3.73 mill/uL (4.7-6.1); RED CELL DISTRIBUTION WIDTH 34.1 % (11.6-14.6)
[2019-05-04 07:27] LABS: CHLORIDE 103 mEq/L (98-107)
[2019-05-04] MEDS: ACETAMINOPHEN 650MG/20.3ML UDC GT PRN ×3 (08:52→18:29)
[2019-05-04] MEDS: LISINOPRIL 20MG TABLET PO SCH ×2 (08:52→21:00)
[2019-05-04] MEDS: FERROUS SULFATE 300MG/5ML UDC PO SCH ×3 (08:52→18:30)
[2019-05-04] MEDS: AMLODIPINE 10MG TABLET PO SCH (08:53)
[2019-05-04] MEDS: SODIUM CHLORIDE 0.9% 1,000 ML IV SCH (14:15)
[2019-05-04] MEDS: PIPERACILLIN/TAZOBACTAM 3.375 G in DEXT 5% WATER 100 ML IV SCH ×2 (18:29→23:12)
[2019-05-05] VITALS (12 sets, daily range): BP systolic 99–132; BP diastolic 48–73
[2019-05-05] MEDS: IPRATROPIUM/ALBUTEROL 0.5-3(2.5)MG/3ML NEB HHN SCH ×4 (00:10→21:01)
[2019-05-05] MEDS: ACETYLCYSTEINE 100MG/ML 10% VIAL 4ML INH SCH ×3 (00:10→14:00)
[2019-05-05] MEDS: INSULIN LISPRO 100 UNITS/ML SUBCUT SCH ×4 (00:45→18:00)
[2019-05-05] MEDS: BLOOD SUGAR DIAGNOSTIC STRIP TEST SCH ×4 (00:46→18:24)
[2019-05-05] MEDS: SODIUM CHLORIDE 0.9% 1,000 ML IV SCH ×2 (01:56→16:00)
[2019-05-05] MEDS: ACETAMINOPHEN 650MG/20.3ML UDC GT PRN ×3 (02:03→19:49)
[2019-05-05] MEDS: DILTIAZEM HCL 30MG TABLET PO SCH ×4 (05:48→18:32)
[2019-05-05] MEDS: PIPERACILLIN/TAZOBACTAM 3.375 G in DEXT 5% WATER 100 ML IV SCH ×2 (05:54→11:14)
[2019-05-05] MEDS: ZINC SULFATE 220 MG ( 50 ) CAPSULE PO SCH (08:12)
[2019-05-05] MEDS: ASCORBIC ACID 500 MG TABLET PO SCH (08:12)
[2019-05-05] MEDS: FERROUS SULFATE 300MG/5ML UDC PO SCH ×3 (08:12→18:32)
[2019-05-05] MEDS: AMLODIPINE 10MG TABLET PO SCH (08:12)
[2019-05-05] MEDS: LISINOPRIL 20MG TABLET PO SCH (08:13)
[2019-05-05] MEDS ORDERED: BISACODYL 10MG SUPP PR NR (12:00)
[2019-05-05] MEDS: DOCUSATE SODIUM 250MG CAPSULE PO SCH (12:54)
[2019-05-05] MEDS ORDERED: SODIUM CHLORIDE 0.9% 1,000 ML IV ONE (14:30)
[2019-05-05 15:55] LABS: BG BASE EXCESS 1.8 mmol/L (-2.0-2.0); BG CARBOXYHEMOGLOBIN 0.3 % (0.5-1.5); BG DEOXYHEMOGLOBIN 5.4 % (0.0-5.0); BG FRACTION INSPIRED OXYGEN 30; BG HCO3 ACT 24.3 mmol/L (22.0-26.0); BG OXYGEN SATURATION 94.6 % (92.0-98.5); BG OXYHEMOGLOBIN 94.3 % (94.0-97.0); BG PCO2 29.3 mmHg (35.0-45.0); BG PH 7.536 (7.350-7.450); BG PO2 71.5 mmHg (75.0-100.0); BG SAMPLE SITE RIGHT RADIAL; BG TIDAL VOLUME(mL) 500 mL; BG VENT MODE VENT - A/C; BG VENT RATE 12 set
[2019-05-05] MEDS ORDERED: LORAZEPAM 2MG/ML CPJ IV PRN (16:45)
[2019-05-05] MEDS ORDERED: ALBUMIN HUMAN 25GM/100ML (25%) IV SCH (17:00)
[2019-05-05 17:08] LABS: BASOPHILS % 0.2 % (0.0-2.0); EOSINOPHILS % 0.1 % (0.0-5.0); HEMATOCRIT. 23.4 % (42.0-52.0); HEMOGLOBIN. 7.4 g/dL (14.0-18.0); LYMPHOCYTES % 13.1 % (20.0-50.0); MEAN CORPUSCULAR HEMOGLOBIN 22.8 pg (28.0-32.0); MEAN CORPUSCULAR VOLUME 71.7 fL (80.0-94.0); MEAN PLATELET VOLUME 8.6 fl (7.4-10.4); MONOCYTES % 3.9 % (2.0-8.0); NEUTROPHILS % 82.7 % (40.0-76.0); PLATELET 244 x1000/uL (130-400); RED BLOOD CELL COUNT 3.26 mill/uL (4.7-6.1); RED CELL DISTRIBUTION WIDTH 33.7 % (11.6-14.6)
[2019-05-05 17:27] LABS: CHLORIDE 108 mEq/L (98-107)
[2019-05-05] MEDS: MEROPENEM 500 MG in SODIUM CHLORIDE 0.9% 50 ML IV SCH (17:42)
[2019-05-06] VITALS (13 sets, daily range): BP systolic 98–134; BP diastolic 49–73
[2019-05-06] MEDS: BLOOD SUGAR DIAGNOSTIC STRIP TEST SCH ×4 (00:44→17:52)
[2019-05-06] MEDS: MEROPENEM 500 MG in SODIUM CHLORIDE 0.9% 50 ML IV SCH ×3 (01:06→16:33)
[2019-05-06] MEDS: ACETYLCYSTEINE 100MG/ML 10% VIAL 4ML INH SCH ×2 (01:36→04:05)
[2019-05-06] MEDS: IPRATROPIUM/ALBUTEROL 0.5-3(2.5)MG/3ML NEB HHN SCH ×2 (01:42→20:10)
[2019-05-06] MEDS: ACETAMINOPHEN 650MG/20.3ML UDC GT PRN ×2 (03:57→13:24)
[2019-05-06] MEDS: SODIUM CHLORIDE 0.9% 1,000 ML IV SCH ×3 (04:58→22:00)
[2019-05-06] MEDS: DILTIAZEM HCL 30MG TABLET PO SCH ×4 (06:00→17:51)
[2019-05-06] MEDS: INSULIN LISPRO 100 UNITS/ML SUBCUT SCH ×3 (06:00→11:24)
[2019-05-06] MEDS: FERROUS SULFATE 300MG/5ML UDC PO SCH ×3 (08:43→17:51)
[2019-05-06] MEDS: ZINC SULFATE 220 MG ( 50 ) CAPSULE PO SCH (08:43)
[2019-05-06] MEDS: DOCUSATE SODIUM 250MG CAPSULE PO SCH (08:43)
[2019-05-06] MEDS: ASCORBIC ACID 500 MG TABLET PO SCH (08:43)
[2019-05-06] MEDS: DILTIAZEM HCL 5MG/ML 5ML VIAL IV PRN (16:24)
[2019-05-07] VITALS (12 sets, daily range): BP systolic 110–136; BP diastolic 60–75
[2019-05-07] MEDS: DILTIAZEM HCL 30MG TABLET PO SCH ×4 (01:00→17:25)
[2019-05-07] MEDS: ACETAMINOPHEN 650MG/20.3ML UDC GT PRN ×2 (01:16→18:42)
[2019-05-07] MEDS: MEROPENEM 500 MG in SODIUM CHLORIDE 0.9% 50 ML IV SCH ×3 (01:17→16:23)
[2019-05-07] MEDS: IPRATROPIUM/ALBUTEROL 0.5-3(2.5)MG/3ML NEB HHN SCH ×2 (04:05→20:24)
[2019-05-07] MEDS: BLOOD SUGAR DIAGNOSTIC STRIP TEST SCH ×4 (05:38→17:31)
[2019-05-07] MEDS: ASCORBIC ACID 500 MG TABLET PO SCH (08:25)
[2019-05-07] MEDS: DOCUSATE SODIUM 250MG CAPSULE PO SCH (08:25)
[2019-05-07] MEDS: ZINC SULFATE 220 MG ( 50 ) CAPSULE PO SCH (08:25)
[2019-05-07] MEDS: FERROUS SULFATE 300MG/5ML UDC PO SCH ×3 (08:25→17:25)
[2019-05-07] MEDS: SODIUM CHLORIDE 0.9% 1,000 ML IV SCH ×2 (08:33→17:19)
[2019-05-07] MEDS: DILTIAZEM HCL 5MG/ML 5ML VIAL IV PRN (13:25)
[2019-05-08] VITALS (12 sets, daily range): BP systolic 108–141; BP diastolic 62–91
[2019-05-08] MEDS: BLOOD SUGAR DIAGNOSTIC STRIP TEST SCH ×4 (00:01→18:11)
[2019-05-08] MEDS: DILTIAZEM HCL 30MG TABLET PO SCH ×4 (00:01→18:11)
[2019-05-08] MEDS: MEROPENEM 500 MG in SODIUM CHLORIDE 0.9% 50 ML IV SCH ×3 (00:02→17:58)
[2019-05-08] MEDS: ACETYLCYSTEINE 100MG/ML 10% VIAL 4ML INH SCH ×2 (00:53→08:33)
[2019-05-08] MEDS: IPRATROPIUM/ALBUTEROL 0.5-3(2.5)MG/3ML NEB HHN SCH ×3 (00:54→20:31)
[2019-05-08] MEDS: SODIUM CHLORIDE 0.9% 1,000 ML IV SCH ×2 (04:55→14:00)
[2019-05-08] MEDS: FERROUS SULFATE 300MG/5ML UDC PO SCH ×3 (08:53→18:11)
[2019-05-08] MEDS: ACETAMINOPHEN 650MG/20.3ML UDC GT PRN (08:53)
[2019-05-08] MEDS: ASCORBIC ACID 500 MG TABLET PO SCH (08:54)
[2019-05-08] MEDS: ZINC SULFATE 220 MG ( 50 ) CAPSULE PO SCH (08:54)
[2019-05-08] MEDS: DOCUSATE SODIUM 250MG CAPSULE PO SCH (08:54)
[2019-05-08] MEDS: IPRATROPIUM/ALBUTEROL 0.5-3(2.5)MG/3ML NEB HHN PRN (13:56)
[2019-05-09] VITALS (10 sets, daily range): BP systolic 120–150; BP diastolic 61–80
[2019-05-09] MEDS: IPRATROPIUM/ALBUTEROL 0.5-3(2.5)MG/3ML NEB HHN SCH ×4 (00:42→20:29)
[2019-05-09] MEDS: ACETYLCYSTEINE 100MG/ML 10% VIAL 4ML INH SCH ×3 (00:43→16:33)
[2019-05-09] MEDS: MEROPENEM 500 MG in SODIUM CHLORIDE 0.9% 50 ML IV SCH ×3 (00:56→17:40)
[2019-05-09] MEDS: SODIUM CHLORIDE 0.9% 1,000 ML IV SCH ×3 (00:56→20:00)
[2019-05-09] MEDS: DILTIAZEM HCL 30MG TABLET PO SCH ×2 (00:57→23:35)
[2019-05-09] MEDS: BLOOD SUGAR DIAGNOSTIC STRIP TEST SCH ×5 (00:57→23:35)
[2019-05-09] MEDS: ASCORBIC ACID 500 MG TABLET PO SCH (09:11)
[2019-05-09] MEDS: DOCUSATE SODIUM 250MG CAPSULE PO SCH (09:11)
[2019-05-09] MEDS: FERROUS SULFATE 300MG/5ML UDC PO SCH ×3 (09:11→17:40)
[2019-05-09] MEDS: ZINC SULFATE 220 MG ( 50 ) CAPSULE PO SCH (09:11)
[2019-05-09] MEDS ORDERED: SODIUM CHLORIDE 0.9% 500 ML IV ONE (10:06)
[2019-05-09] MEDS ORDERED: SODIUM CHLORIDE 0.9% 500 ML IV NR (10:15)
[2019-05-09 16:32] LABS: HEMATOCRIT. 24.3 % (42.0-52.0); HEMOGLOBIN. 7.7 g/dL (14.0-18.0); MEAN CORPUSCULAR HEMOGLOBIN 22.8 pg (28.0-32.0); MEAN CORPUSCULAR VOLUME 71.7 fL (80.0-94.0); MEAN PLATELET VOLUME 8.8 fl (7.4-10.4); PLATELET 312 x1000/uL (130-400); RED BLOOD CELL COUNT 3.39 mill/uL (4.7-6.1); RED CELL DISTRIBUTION WIDTH 34.1 % (11.6-14.6)
[2019-05-09 16:33] LABS: CHLORIDE 105 mEq/L (98-107)
[2019-05-09 17:00] LABS: PLATELET ESTIMATE NORMAL
[2019-05-10] VITALS (12 sets, daily range): BP systolic 106–138; BP diastolic 58–75
[2019-05-10] MEDS: IPRATROPIUM/ALBUTEROL 0.5-3(2.5)MG/3ML NEB HHN SCH ×4 (00:42→20:42)
[2019-05-10] MEDS: DILTIAZEM HCL 30MG TABLET PO SCH ×3 (06:01→16:54)
[2019-05-10] MEDS: BLOOD SUGAR DIAGNOSTIC STRIP TEST SCH ×3 (06:01→18:20)
[2019-05-10] MEDS: ASCORBIC ACID 500 MG TABLET PO SCH (08:42)
[2019-05-10] MEDS: FERROUS SULFATE 300MG/5ML UDC PO SCH ×3 (08:42→16:51)
[2019-05-10] MEDS: DOCUSATE SODIUM 250MG CAPSULE PO SCH (08:42)
[2019-05-10] MEDS: MEROPENEM 500 MG in SODIUM CHLORIDE 0.9% 50 ML IV SCH ×4 (08:42→16:51)
[2019-05-10] MEDS: ZINC SULFATE 220 MG ( 50 ) CAPSULE PO SCH (08:42)
[2019-05-10] MEDS: SODIUM CHLORIDE 0.9% 1,000 ML IV SCH (16:54)
[2019-05-10] MEDS: DILTIAZEM HCL 5MG/ML 5ML VIAL IV PRN (16:56)
[2019-05-11] VITALS (13 sets, daily range): BP systolic 112–140; BP diastolic 53–79
[2019-05-11] MEDS: MEROPENEM 500 MG in SODIUM CHLORIDE 0.9% 50 ML IV SCH ×4 (00:42→23:41)
[2019-05-11] MEDS: BLOOD SUGAR DIAGNOSTIC STRIP TEST SCH ×4 (00:43→18:00)
[2019-05-11] MEDS: DILTIAZEM HCL 30MG TABLET PO SCH ×5 (00:43→23:40)
[2019-05-11] MEDS: SODIUM CHLORIDE 0.9% 1,000 ML IV SCH ×3 (02:00→23:27)
[2019-05-11] MEDS: IPRATROPIUM/ALBUTEROL 0.5-3(2.5)MG/3ML NEB HHN SCH ×3 (02:17→20:31)
[2019-05-11] MEDS: ASCORBIC ACID 500 MG TABLET PO SCH (10:17)
[2019-05-11] MEDS: FERROUS SULFATE 300MG/5ML UDC PO SCH ×3 (10:17→18:36)
[2019-05-11] MEDS: ZINC SULFATE 220 MG ( 50 ) CAPSULE PO SCH (10:17)
[2019-05-11] MEDS: DOCUSATE SODIUM 250MG CAPSULE PO SCH (10:18)
[2019-05-12] VITALS (13 sets, daily range): BP systolic 106–148; BP diastolic 63–79
[2019-05-12] MEDS: IPRATROPIUM/ALBUTEROL 0.5-3(2.5)MG/3ML NEB HHN SCH ×3 (01:57→20:24)
[2019-05-12] MEDS: DILTIAZEM HCL 30MG TABLET PO SCH ×3 (04:52→18:00)
[2019-05-12] MEDS: ACETAMINOPHEN 650MG/20.3ML UDC GT PRN (04:52)
[2019-05-12] MEDS: BLOOD SUGAR DIAGNOSTIC STRIP TEST SCH ×4 (05:39→17:26)
[2019-05-12] MEDS: FERROUS SULFATE 300MG/5ML UDC PO SCH (08:00)
[2019-05-12] MEDS: DOCUSATE SODIUM 250MG CAPSULE PO SCH (09:54)
[2019-05-12] MEDS: ZINC SULFATE 220 MG ( 50 ) CAPSULE PO SCH (09:54)
[2019-05-12] MEDS: SODIUM CHLORIDE 0.9% 1,000 ML IV SCH ×2 (09:55→18:19)
[2019-05-12] MEDS: ASCORBIC ACID 500 MG TABLET PO SCH (09:55)
[2019-05-12] MEDS: MEROPENEM 500 MG in SODIUM CHLORIDE 0.9% 50 ML IV SCH ×2 (09:55→18:19)
[2019-05-12] MEDS: IPRATROPIUM/ALBUTEROL 0.5-3(2.5)MG/3ML NEB HHN PRN (12:45)
[2019-05-13] VITALS (12 sets, daily range): BP systolic 112–131; BP diastolic 61–79
[2019-05-13] MEDS: DILTIAZEM HCL 30MG TABLET PO SCH ×4 (00:32→18:10)
[2019-05-13] MEDS: BLOOD SUGAR DIAGNOSTIC STRIP TEST SCH ×4 (00:32→18:07)
[2019-05-13] MEDS: IPRATROPIUM/ALBUTEROL 0.5-3(2.5)MG/3ML NEB HHN SCH ×4 (02:43→20:23)
[2019-05-13] MEDS: SODIUM CHLORIDE 0.9% 1,000 ML IV SCH ×3 (07:15→18:12)
[2019-05-13] MEDS: ASCORBIC ACID 500 MG TABLET PO SCH (09:28)
[2019-05-13] MEDS: DOCUSATE SODIUM 250MG CAPSULE PO SCH (09:28)
[2019-05-13] MEDS: ZINC SULFATE 220 MG ( 50 ) CAPSULE PO SCH (09:28)
[2019-05-13] MEDS: DILTIAZEM HCL 5MG/ML 5ML VIAL IV PRN (09:30)
[2019-05-14] VITALS (12 sets, daily range): BP systolic 113–136; BP diastolic 59–78
[2019-05-14] MEDS: BLOOD SUGAR DIAGNOSTIC STRIP TEST SCH ×4 (00:23→17:29)
[2019-05-14] MEDS: DILTIAZEM HCL 30MG TABLET PO SCH ×4 (00:55→17:30)
[2019-05-14] MEDS: IPRATROPIUM/ALBUTEROL 0.5-3(2.5)MG/3ML NEB HHN SCH ×4 (03:07→19:58)
[2019-05-14] MEDS: SODIUM CHLORIDE 0.9% 1,000 ML IV SCH ×2 (05:44→16:36)
[2019-05-14] MEDS: ASCORBIC ACID 500 MG TABLET PO SCH (08:48)
[2019-05-14] MEDS: DOCUSATE SODIUM 250MG CAPSULE PO SCH (08:48)
[2019-05-14] MEDS: ZINC SULFATE 220 MG ( 50 ) CAPSULE PO SCH (08:48)
[2019-05-14] MEDS: FAMOTIDINE 40MG TABLET GT SCH (21:12)
[2019-05-15] VITALS (12 sets, daily range): BP systolic 109–143; BP diastolic 56–75
[2019-05-15] MEDS: DILTIAZEM HCL 30MG TABLET PO SCH ×4 (00:58→17:33)
[2019-05-15] MEDS: SODIUM CHLORIDE 0.9% 1,000 ML IV SCH ×2 (03:06→16:42)
[2019-05-15] MEDS: BLOOD SUGAR DIAGNOSTIC STRIP TEST SCH ×4 (06:20→18:00)
[2019-05-15] MEDS: IPRATROPIUM/ALBUTEROL 0.5-3(2.5)MG/3ML NEB HHN SCH ×3 (09:05→20:20)
[2019-05-15] MEDS: ZINC SULFATE 220 MG ( 50 ) CAPSULE PO SCH (09:29)
[2019-05-15] MEDS: DOCUSATE SODIUM 250MG CAPSULE PO SCH (09:30)
[2019-05-15] MEDS: ASCORBIC ACID 500 MG TABLET PO SCH (09:30)
[2019-05-15] MEDS: FAMOTIDINE 40MG TABLET GT SCH (09:31)
[2019-05-15] MEDS: FAMOTIDINE 20MG TABLET GT SCH (20:40)
[2019-05-16] VITALS (12 sets, daily range): BP systolic 111–138; BP diastolic 59–78
[2019-05-16] MEDS: DILTIAZEM HCL 30MG TABLET PO SCH ×5 (00:14→21:38)
[2019-05-16] MEDS: SODIUM CHLORIDE 0.9% 1,000 ML IV SCH ×2 (01:58→12:25)
[2019-05-16] MEDS: IPRATROPIUM/ALBUTEROL 0.5-3(2.5)MG/3ML NEB HHN SCH ×4 (02:13→21:04)
[2019-05-16] MEDS: BLOOD SUGAR DIAGNOSTIC STRIP TEST SCH ×4 (05:26→17:39)
[2019-05-16] MEDS: ZINC SULFATE 220 MG ( 50 ) CAPSULE PO SCH (08:43)
[2019-05-16] MEDS: ASCORBIC ACID 500 MG TABLET PO SCH (08:43)
[2019-05-16] MEDS: FAMOTIDINE 20MG TABLET GT SCH ×2 (08:43→21:38)
[2019-05-16] MEDS: DOCUSATE SODIUM SUGAR FREE 100MG/10ML UDC GT SCH (08:45)
[2019-05-16] MEDS: ACETAMINOPHEN 650MG/20.3ML UDC GT PRN (21:40)
[2019-05-17] VITALS (11 sets, daily range): BP systolic 115–142; BP diastolic 71–86
[2019-05-17] MEDS: IPRATROPIUM/ALBUTEROL 0.5-3(2.5)MG/3ML NEB HHN SCH ×4 (02:43→20:53)
[2019-05-17] MEDS: SODIUM CHLORIDE 0.9% 1,000 ML IV SCH ×2 (06:18→22:36)
[2019-05-17] MEDS: BLOOD SUGAR DIAGNOSTIC STRIP TEST SCH ×4 (06:19→23:22)
[2019-05-17] MEDS: DILTIAZEM HCL 30MG TABLET PO SCH ×4 (06:19→23:22)
[2019-05-17] MEDS: ACETAMINOPHEN 650MG/20.3ML UDC GT PRN (06:20)
[2019-05-17] MEDS: FAMOTIDINE 20MG TABLET GT SCH ×2 (09:24→22:35)
[2019-05-17] MEDS: ZINC SULFATE 220 MG ( 50 ) CAPSULE PO SCH (09:24)
[2019-05-17] MEDS: ASCORBIC ACID 500 MG TABLET PO SCH (09:24)
[2019-05-17] MEDS: DOCUSATE SODIUM SUGAR FREE 100MG/10ML UDC GT SCH (09:25)
[2019-05-18] VITALS (9 sets, daily range): BP systolic 105–130; BP diastolic 67–80
[2019-05-18] MEDS: IPRATROPIUM/ALBUTEROL 0.5-3(2.5)MG/3ML NEB HHN SCH ×3 (02:05→15:00)
[2019-05-18] MEDS: DILTIAZEM HCL 5MG/ML 5ML VIAL IV PRN ×2 (04:41→15:15)
[2019-05-18] MEDS: BLOOD SUGAR DIAGNOSTIC STRIP TEST SCH ×2 (05:47→12:21)
[2019-05-18] MEDS: DILTIAZEM HCL 30MG TABLET PO SCH ×2 (05:48→11:50)
[2019-05-18] MEDS: ZINC SULFATE 220 MG ( 50 ) CAPSULE PO SCH (09:14)
[2019-05-18] MEDS: FAMOTIDINE 20MG TABLET GT SCH (09:14)
[2019-05-18] MEDS: DOCUSATE SODIUM SUGAR FREE 100MG/10ML UDC GT SCH (09:14)
[2019-05-18] MEDS: ASCORBIC ACID 500 MG TABLET PO SCH (09:14)
[2019-05-18] MEDS: SODIUM CHLORIDE 0.9% 1,000 ML IV SCH (11:50)
== END 2019-05-18 18:00 | DRG 5 ==
LOC: ER 12:50 → 8WST 17:29 → EDBEDREQ 17:34 → ENRESERV 18:55 → MICUSO 21:00 → 5EST 04-02 12:17
PROVIDERS: ADMIT Internal Medicine; ATTEND Internal Medicine
PROC: 3E03317 Introduction of Other Thrombolytic into Peripheral Vein, Percutaneous Approach (ICD-10-PCS; 2019-03-21)
PROC: 5A1955Z Respiratory Ventilation, Greater than 96 Consecutive Hours (ICD-10-PCS; principal; 2019-03-22)
PROC: 0BH17EZ Insertion of Endotracheal Airway into Trachea, Via Natural or Artificial Opening (ICD-10-PCS; 2019-03-22)
PROC: 0BH17EZ Insertion of Endotracheal Airway into Trachea, Via Natural or Artificial Opening (ICD-10-PCS; 2019-03-28)
PROC: 30233N1 Transfusion of Nonautologous Red Blood Cells into Peripheral Vein, Percutaneous Approach (ICD-10-PCS; 2019-03-28)
PROC: 0B113F4 Bypass Trachea to Cutaneous with Tracheostomy Device, Percutaneous Approach (ICD-10-PCS; 2019-03-31)
PROC: 0DH63UZ Insertion of Feeding Device into Stomach, Percutaneous Approach (ICD-10-PCS; 2019-04-02)
PROC: 0JB10ZZ Excision of Face Subcutaneous Tissue and Fascia, Open Approach (ICD-10-PCS; 2019-04-26)
DX: I63.511 Cerebral infarction due to unspecified occlusion or stenosis of right middle cerebral artery (principal); I61.9 Nontraumatic intracerebral hemorrhage, unspecified; A41.9 Sepsis, unspecified organism; G92 Toxic encephalopathy; J18.9 Pneumonia, unspecified organism; L89.159 Pressure ulcer of sacral region, unspecified stage; E46 Unspecified protein-calorie malnutrition; L89.814 Pressure ulcer of head, stage 4; E87.0 Hyperosmolality and hypernatremia; G81.94 Hemiplegia, unspecified affecting left nondominant side; L89.899 Pressure ulcer of other site, unspecified stage; M62.82 Rhabdomyolysis; G90.8 Other disorders of autonomic nervous system; J96.00 Acute respiratory failure, unspecified whether with hypoxia or hypercapnia; Z66 Do not resuscitate; W01.0XXA Fall on same level from slipping, tripping and stumbling without subsequent striking against object, initial encounter; Y93.01 Activity, walking, marching and hiking; D50.9 Iron deficiency anemia, unspecified; I65.21 Occlusion and stenosis of right carotid artery; I10 Essential (primary) hypertension; K82.4 Cholesterolosis of gallbladder; T45.615A Adverse effect of thrombolytic drugs, initial encounter; Y92.238 Other place in hospital as the place of occurrence of the external cause; R47.02 Dysphasia; E86.0 Dehydration; Z99.11 Dependence on respirator [ventilator] status; Z86.73 Personal history of transient ischemic attack (TIA), and cerebral infarction without residual deficits; Y92.89 Other specified places as the place of occurrence of the external cause; Z93.1 Gastrostomy status; Z78.1 Physical restraint status; Y99.8 Other external cause status; Z68.1 Body mass index [BMI] 19.9 or less, adult; Z79.899 Other long term (current) drug therapy; Z87.891 Personal history of nicotine dependence
CPT/HCPCS: 36415; 36600; 70496; 70544; 70553; 71045; 74177; 76700; 80048; 80053; 80061; 80202; 80305; 80320; 81003; 82270; 82375; 82550; 82553; 82607; 82728; 82746; 82805; 82962; 83036; 83540; 83550; 83605; 83735; 83880; 84134; 84145; 84439; 84443; 84478; 84484; 85025; 85027; 85384; 86850; 86900; 86920; 93005; 93880; 93970; 94002; 94003; 94640; 94667; 97162; 99285; A6261; C9113; J0330; J0692; J1100; J1815; J1940; J1953; J2060; J2185; J2250; J2270; J2543; J2704; J2997; J3010; J3370; J3490; J7030; J7040; J7050; J7060; J7121; J7608; J7626; J8540; P9016; P9047; Q9967; A4315; G0480